=== PATIENT | female | born 1960 | race Caucasian/White ===

== ENCOUNTER 2017-08-31 10:22 | Emergency (ER) | payer MEDICAID ==
[~2017-08-31] VITALS: Ht 167.6 cm; Wt 124.7 kg
[2017-08-31 10:22] VITALS: BP_SYST 195
[2017-08-31 11:19] LABS: BASOPHILS # (AUTO) 0.1 K/uL (0.0-0.2); BASOPHILS % (AUTO) 1.7 % (0.0-2.0); EOSINOPHILS # (AUTO) 0.1 K/uL (0.0-0.4); HEMATOCRIT 36.4 % (36-48); HEMOGLOBIN 12.1 g/dL (12.0-16.0); LYMPHOCYTES # (AUTO) 2.1 K/uL (1.0-5.5); LYMPHOCYTES % (AUTO) 29.1 % (20.5-51.5); MEAN CORPUSCULAR HEMOGLOBIN 28 pg (27-31); MEAN CORPUSCULAR HGB CONC 33 % (32-36); MEAN CORPUSCULAR VOLUME 83 fL (79.0-98.0); MONOCYTES # (AUTO) 0.4 K/uL (0.0-1.0); MONOCYTES % (AUTO) 5.7 % (1.7-9.3); NEUTROPHILS # (AUTO) 4.6 K/uL (1.8-7.7); NEUTROPHILS % (AUTO) 61.5 % (40.0-70.0); PLATELET COUNT (AUTO) 303 K/uL (130-430); RED BLOOD CELL COUNT(AUTO) 4.41 MIL/uL (4.2-6.2); RED CELL DISTRIBUTION WIDTH 13.9 % (9.0-15.0); WHITE BLOOD COUNT (AUTO) 7.3 K/uL (4.8-10.8)
[2017-08-31 11:27] LABS: CALCIUM 9.2 mg/dL (8.4-11.0); CREATININE 1.44 mg/dL (0.55-1.30); POTASSIUM 4.4 mmol/L (3.5-5.1)
[2017-08-31 11:32] LABS: ALBUMIN 2.4 g/dL (3.4-4.8); TOTAL BILIRUBIN 0.3 mg/dL (0.0-1.0)
[2017-08-31 11:58] LABS: PROTHROMBIN TIME 9.9 SECS (9.5-12.5)
[2017-08-31 12:47] VITALS: BP_SYST 154
== END 2017-08-31 12:47 | disposition home or self-care (01) ==
LOC: SED 10:22
DX: R51 Headache (principal); R60.9 Edema, unspecified; R00.2 Palpitations; R53.1 Weakness; R20.2 Paresthesia of skin; E11.40 Type 2 diabetes mellitus with diabetic neuropathy, unspecified; I10 Essential (primary) hypertension; Z85.42 Personal history of malignant neoplasm of other parts of uterus; Z90.49 Acquired absence of other specified parts of digestive tract; Z90.710 Acquired absence of both cervix and uterus
CPT/HCPCS: 36415; 70450-TC; 71045; 80053; 82550-TC; 83880; 84484; 85025; 85610-TC; 85730-TC; 93005; 93970; 99285

== ENCOUNTER 2018-03-16 12:15 | Emergency (ER) | payer MEDICAID ==
[~2018-03-16] VITALS: Ht 167.6 cm; Wt 125.6 kg
[2018-03-16 12:18] VITALS: BP_SYST 127
--- NOTE | 2018-03-16 12:23 | NUR ---
Patient triaged and placed in waiting room. VSS and patient appears in no acute distress at this time. Accompanied by self, awaiting available bed, and MD notified of need for MSE.
--- NOTE | 2018-03-16 12:31 | NUR ---
Pt placed in bed 4
--- NOTE | 2018-03-16 12:35 | NUR ---
Pt brought by self,A&Ox4, pt presents to ER with large bump on right inner thigh near groin ,brown discharge noted,pt afebrile, VS WNL.
--- NOTE | 2018-03-16 12:44 | NUR ---
ER at bedside examining patient with Carrie SIMONS
[2018-03-16 13:06] VITALS: BP_SYST 127
--- NOTE | 2018-03-16 13:45 | NUR ---
Patient given written and verbal discharge instructions and verbalizes understanding. ER MD discussed with patient the results and treatment provided. Patient in stable condition. ID arm band removed. Rx of Tylenol and Keflex given. Patient educated on pain management and to follow up with PMD. Pain Scale 2/10 tolerable for patient . Opportunity for questions provided and answered. Medication side effect fact sheet provided.
== END 2018-03-16 13:45 | disposition home or self-care (01) ==
LOC: SED 12:15
DX: L03.311 Cellulitis of abdominal wall (principal); E11.40 Type 2 diabetes mellitus with diabetic neuropathy, unspecified; I10 Essential (primary) hypertension; Z85.42 Personal history of malignant neoplasm of other parts of uterus; Z90.49 Acquired absence of other specified parts of digestive tract; Z90.710 Acquired absence of both cervix and uterus
CPT/HCPCS: 99283

== ENCOUNTER 2018-09-21 11:07 | Inpatient (IN) | payer MEDICAID ==
[~2018-09-21] VITALS: Ht 167.6 cm; Wt 126.6 kg
[2018-09-21 11:27] VITALS: BP_SYST 138
[2018-09-21 12:10] LABS: BASOPHILS # (AUTO) 0.1 K/uL (0.0-0.2); BASOPHILS % (AUTO) 0.7 % (0.0-2.0); EOSINOPHILS # (AUTO) 0.1 K/uL (0.0-0.4); EOSINOPHILS % (AUTO) 0.8 % (0.0-4.0); HEMATOCRIT 29.8 % (36-48); HEMOGLOBIN 9.4 g/dL (12.0-16.0); LYMPHOCYTES # (AUTO) 2.7 K/uL (1.0-5.5); LYMPHOCYTES % (AUTO) 23.5 % (20.5-51.5); MEAN CORPUSCULAR HEMOGLOBIN 26 pg (27-31); MEAN CORPUSCULAR HGB CONC 32 % (32-36); MEAN CORPUSCULAR VOLUME 83 fL (79.0-98.0); NEUTROPHILS # (AUTO) 7.7 K/uL (1.8-7.7); PLATELET COUNT (AUTO) 255 K/uL (130-430); RED BLOOD CELL COUNT(AUTO) 3.59 MIL/uL (4.2-6.2); RED CELL DISTRIBUTION WIDTH 15.1 % (9.0-15.0); WHITE BLOOD COUNT (AUTO) 11.6 K/uL (4.8-10.8)
[2018-09-21 12:38] LABS: CALCIUM 8.9 mg/dL (8.4-11.0); CREATININE 2.83 mg/dL (0.55-1.30); POTASSIUM 4.4 mmol/L (3.5-5.1)
[2018-09-21 12:43] LABS: ALBUMIN 2.4 g/dL (3.4-4.8); TOTAL BILIRUBIN 0.2 mg/dL (0.0-1.0)
[2018-09-21] MEDS ORDERED: IPRATROPIUM/ALBUTEROL SULFATE 3 ML AMPUL.NEB (DUONEB) INH ONE (12:45)
[2018-09-21] MEDS ORDERED: ENALAPRILAT DIHYDRATE 1.25 MG/ML VIAL IVP ONE (13:00)
[2018-09-21] MEDS ORDERED: ASPIRIN 81 MG TAB.CHEW PO ONE (13:00)
[2018-09-21] MEDS ORDERED: ASPI-1155 PO (13:45)
[2018-09-21] MEDS ORDERED: NOR10 PO (13:45)
[2018-09-21] MEDS ORDERED: GABA-531 PO (14:12)
[2018-09-21] MEDS ORDERED: INSU100V SQ (14:12)
[2018-09-21] MEDS ORDERED: FURO-150 PO (14:12)
[2018-09-21] MEDS ORDERED: INSU100I26 SQ (14:12)
[2018-09-21] MEDS ORDERED: METO25TA3 PO (14:12)
[2018-09-21] MEDS ORDERED: ONDANSETRON HCL 4 MG/2 ML VIAL IVP PRN (14:30)
[2018-09-21] MEDS ORDERED: HYDROcodone/ACETAMIN 5-325 MG TAB (NORCO/ VICODIN) PO PRN (14:30)
[2018-09-21] MEDS ORDERED: ACETAMINOPHEN 325 MG TABLET PO PRN (14:30)
[2018-09-21] MEDS ORDERED: D5W 1,000 ML IV PRN (15:05)
[2018-09-21] MEDS ORDERED: GLUCOSE 15 GM GEL (in 37.5 GM TUBE) PO PRN (15:15)
[2018-09-21] MEDS ORDERED: GABAPENTIN 300 MG CAPSULE PO ONE (15:15)
[2018-09-21] MEDS ORDERED: DEXTROSE 50% JECT 50 ML DISP.SYRIN IVP PRN (15:15)
[2018-09-21 16:52] LABS: BILIRUBIN,URINE NEGATIVE (NEGATIVE); BLOOD, URINE 2+ (NEGATIVE); CLARITY/URINE CLOUDY (CLEAR); COLOR,URINE YELLOW (YELLOW); GLUCOSE,URINE TRACE (NEGATIVE); KETONES,URINE NEGATIVE (NEGATIVE); LEUKOCYTE ESTERASE ,URINE TRACE (NEGATIVE); NITRITE, URINE NEGATIVE (NEGATIVE); PH,URINE 5.5 (5.0-8.0); PROTEIN URINE 3+ (NEGATIVE); UROBILINOGEN,URINE 0.2 (0.2-1.0)
[2018-09-21 16:56] VITALS: BP_SYST 117
[2018-09-21] MEDS: INSULIN REGULAR, HUMAN 100 UNITS/ML, 10 ML VIAL (humuLIN R) SUBCUT PRN ×2 (17:16→20:28)
[2018-09-21 17:47] LABS: BACTERIA,URINE MANY /HPF (None Seen); COARSE GRANULAR CASTS,URINE 0-10 /LPF (None Seen); MUCUS,URINE None Seen /LPF (None Seen); WBC,URINE 50-80 /HPF (0-3)
[2018-09-21 20:00] VITALS: BP_SYST 144
[2018-09-21] MEDS: FUROSEMIDE 20 MG TABLET PO SCH (20:26)
[2018-09-21] MEDS: GABAPENTIN 300 MG CAPSULE PO SCH (20:26)
[2018-09-21] MEDS ORDERED: NORMAL SALINE 5 ML DISP.SYRIN IVF SCH (22:00)
[2018-09-21] MEDS: NORMAL SALINE 5 ML DISP.SYRIN IVF SCH (22:00)
[2018-09-22] VITALS (7 sets, daily range): BP systolic 122–154
[2018-09-22] MEDS ORDERED: IPRATROPIUM BROM 0.5 MG/2.5 ML VIAL.NEB (ATROVENT) INH PRN (00:15)
[2018-09-22] MEDS ORDERED: ALBUTEROL SULFATE 0.083% 2.5 MG/3 ML VIAL.NEB INH PRN (00:15)
[2018-09-22] MEDS: INSULIN REGULAR, HUMAN 100 UNITS/ML, 10 ML VIAL (humuLIN R) SUBCUT PRN ×4 (05:33→20:58)
[2018-09-22] MEDS: NORMAL SALINE 5 ML DISP.SYRIN IVF SCH ×3 (05:34→22:00)
[2018-09-22 07:47] LABS: BASOPHILS # (AUTO) 0.1 K/uL (0.0-0.2); BASOPHILS % (AUTO) 0.4 % (0.0-2.0); EOSINOPHILS # (AUTO) 0.1 K/uL (0.0-0.4); EOSINOPHILS % (AUTO) 0.8 % (0.0-4.0); HEMATOCRIT 29.1 % (36-48); HEMOGLOBIN 9.2 g/dL (12.0-16.0); LYMPHOCYTES # (AUTO) 2.3 K/uL (1.0-5.5); LYMPHOCYTES % (AUTO) 18.9 % (20.5-51.5); MEAN CORPUSCULAR HEMOGLOBIN 26 pg (27-31); MEAN CORPUSCULAR HGB CONC 32 % (32-36); MEAN CORPUSCULAR VOLUME 83 fL (79.0-98.0); MONOCYTES # (AUTO) 0.9 K/uL (0.0-1.0); MONOCYTES % (AUTO) 7.8 % (1.7-9.3); NEUTROPHILS # (AUTO) 8.8 K/uL (1.8-7.7); NEUTROPHILS % (AUTO) 72.1 % (40.0-70.0); PLATELET COUNT (AUTO) 275 K/uL (130-430); RED CELL DISTRIBUTION WIDTH 15.2 % (9.0-15.0); WHITE BLOOD COUNT (AUTO) 12.2 K/uL (4.8-10.8)
[2018-09-22 08:15] LABS: CALCIUM 8.7 mg/dL (8.4-11.0); CREATININE 2.84 mg/dL (0.55-1.30); PHOSPHORUS 4.2 mg/dL (2.7-4.5); POTASSIUM 4.4 mmol/L (3.5-5.1); THYROID STIMULATING HORMONE 0.99 uIu/mL (0.36-3.74)
[2018-09-22] MEDS: METOPROLOL SUCCINATE 25 MG TAB.SR.24H (TOPROL XL) PO SCH (08:30)
[2018-09-22] MEDS: ASPIRIN 81 MG TAB.CHEW PO SCH (08:30)
[2018-09-22] MEDS: amLODIPine BESYLATE 10 MG TABLET PO SCH (08:30)
[2018-09-22] MEDS: GABAPENTIN 300 MG CAPSULE PO SCH ×3 (08:31→20:50)
[2018-09-22] MEDS: FUROSEMIDE 20 MG TABLET PO SCH ×2 (08:31→20:53)
[2018-09-22] MEDS: guaiFENesin/DEXTROMETHORPHAN 10 ML UDC PO PRN ×2 (11:37→20:50)
[2018-09-22] MEDS: ALBUTEROL SULFATE 0.083% 2.5 MG/3 ML VIAL.NEB INH PRN ×2 (11:45→18:44)
[2018-09-22] MEDS: IPRATROPIUM BROM 0.5 MG/2.5 ML VIAL.NEB (ATROVENT) INH PRN ×2 (11:46→18:45)
[2018-09-22] MEDS: cefTRIAXone 1 GM in D5W 50 ML IV SCH (11:56)
[2018-09-22] MEDS: LORazepam 2 MG/ML VIAL IVP PRN (23:49)
[2018-09-22] MEDS: HYDROcodone/ACETAMIN 10-325 MG TAB PO PRN (23:56)
[2018-09-23] MEDS: INSULIN REGULAR, HUMAN 100 UNITS/ML, 10 ML VIAL (humuLIN R) SUBCUT PRN ×4 (06:16→21:15)
[2018-09-23] MEDS: NORMAL SALINE 5 ML DISP.SYRIN IVF SCH ×3 (06:17→21:08)
[2018-09-23 06:47] LABS: BASOPHILS # (AUTO) 0.1 K/uL (0.0-0.2); BASOPHILS % (AUTO) 0.6 % (0.0-2.0); EOSINOPHILS # (AUTO) 0.3 K/uL (0.0-0.4); EOSINOPHILS % (AUTO) 2.3 % (0.0-4.0); HEMATOCRIT 30.8 % (36-48); HEMOGLOBIN 9.6 g/dL (12.0-16.0); LYMPHOCYTES # (AUTO) 4.1 K/uL (1.0-5.5); LYMPHOCYTES % (AUTO) 29.9 % (20.5-51.5); MEAN CORPUSCULAR HEMOGLOBIN 26 pg (27-31); MEAN CORPUSCULAR HGB CONC 31 % (32-36); MEAN CORPUSCULAR VOLUME 84 fL (79.0-98.0); MONOCYTES % (AUTO) 7.4 % (1.7-9.3); NEUTROPHILS # (AUTO) 8.2 K/uL (1.8-7.7); NEUTROPHILS % (AUTO) 59.8 % (40.0-70.0); PLATELET COUNT (AUTO) 322 K/uL (130-430); RED BLOOD CELL COUNT(AUTO) 3.66 MIL/uL (4.2-6.2); RED CELL DISTRIBUTION WIDTH 15.2 % (9.0-15.0); WHITE BLOOD COUNT (AUTO) 13.8 K/uL (4.8-10.8)
[2018-09-23 07:05] LABS: ALBUMIN 2.4 g/dL (3.4-4.8); C-REACTIVE PROTEIN QUANT 11.5 mg/dL (0-0.5); CREATININE 2.9 mg/dL (0.55-1.30); PHOSPHORUS 5.2 mg/dL (2.7-4.5); POTASSIUM 4.7 mmol/L (3.5-5.1); TOTAL BILIRUBIN 0.2 mg/dL (0.0-1.0)
[2018-09-23 07:49] LABS: ERYTHROCYTE SEDIMENTATION RATE 74 MM/HR (0-20)
[2018-09-23 08:30] VITALS: BP_SYST 162
[2018-09-23] MEDS: METOPROLOL SUCCINATE 25 MG TAB.SR.24H (TOPROL XL) PO SCH (08:51)
[2018-09-23] MEDS: FUROSEMIDE 20 MG TABLET PO SCH ×2 (08:51→21:06)
[2018-09-23] MEDS: guaiFENesin/DEXTROMETHORPHAN 10 ML UDC PO PRN ×3 (08:51→21:13)
[2018-09-23] MEDS: GABAPENTIN 300 MG CAPSULE PO SCH ×3 (08:52→21:02)
[2018-09-23] MEDS: ASPIRIN 81 MG TAB.CHEW PO SCH (08:52)
[2018-09-23] MEDS: amLODIPine BESYLATE 10 MG TABLET PO SCH (08:52)
[2018-09-23 11:24] VITALS: BP_SYST 128
[2018-09-23] MEDS: cefTRIAXone 1 GM in D5W 50 ML IV SCH (11:54)
[2018-09-23] MEDS ORDERED: VANCOMYCIN HCL 1 GM/NS PREMIX 250 ML IV ONE (13:00)
[2018-09-23 15:48] VITALS: BP_SYST 131
[2018-09-23] MEDS ORDERED: SODIUM CL 3% FOR INHALATION 15 ML VIAL.NEB INH ONE (16:45)
[2018-09-23] MEDS: AZITHROMYCIN 500 MG in NS 250 ML IV SCH (17:06)
[2018-09-23 20:00] VITALS: BP_SYST 123
[2018-09-23] MEDS: LORazepam 2 MG/ML VIAL IVP PRN (21:16)
[2018-09-23] MEDS: MUPIROCIN NASAL 2% OINT. NS SCH (21:16)
[2018-09-23] MEDS: HYDROcodone/ACETAMIN 10-325 MG TAB PO PRN (21:17)
[2018-09-24 03:11] VITALS: BP_SYST 116
[2018-09-24] MEDS: guaiFENesin/DEXTROMETHORPHAN 10 ML UDC PO PRN ×3 (04:51→23:44)
[2018-09-24] MEDS: HYDROcodone/ACETAMIN 10-325 MG TAB PO PRN ×2 (04:59→19:56)
[2018-09-24] MEDS: NORMAL SALINE 5 ML DISP.SYRIN IVF SCH ×3 (05:02→21:28)
[2018-09-24 06:38] LABS: BASOPHILS # (AUTO) 0.1 K/uL (0.0-0.2); BASOPHILS % (AUTO) 0.8 % (0.0-2.0); EOSINOPHILS # (AUTO) 0.3 K/uL (0.0-0.4); EOSINOPHILS % (AUTO) 2.6 % (0.0-4.0); HEMATOCRIT 30.6 % (36-48); HEMOGLOBIN 9.3 g/dL (12.0-16.0); LYMPHOCYTES # (AUTO) 2.8 K/uL (1.0-5.5); LYMPHOCYTES % (AUTO) 24.7 % (20.5-51.5); MEAN CORPUSCULAR HEMOGLOBIN 26 pg (27-31); MEAN CORPUSCULAR HGB CONC 31 % (32-36); MEAN CORPUSCULAR VOLUME 84 fL (79.0-98.0); MONOCYTES # (AUTO) 1.2 K/uL (0.0-1.0); MONOCYTES % (AUTO) 10.2 % (1.7-9.3); NEUTROPHILS % (AUTO) 61.7 % (40.0-70.0); PLATELET COUNT (AUTO) 327 K/uL (130-430); RED BLOOD CELL COUNT(AUTO) 3.64 MIL/uL (4.2-6.2); RED CELL DISTRIBUTION WIDTH 15.2 % (9.0-15.0); WHITE BLOOD COUNT (AUTO) 11.4 K/uL (4.8-10.8)
[2018-09-24 07:10] LABS: C-REACTIVE PROTEIN QUANT 6.8 mg/dL (0-0.5); CALCIUM 8.6 mg/dL (8.4-11.0); CREATININE 2.82 mg/dL (0.55-1.30); PHOSPHORUS 4.9 mg/dL (2.7-4.5); POTASSIUM 4.6 mmol/L (3.5-5.1)
[2018-09-24 08:00] VITALS: BP_SYST 142
[2018-09-24 08:32] LABS: ERYTHROCYTE SEDIMENTATION RATE 54 MM/HR (0-20)
[2018-09-24] MEDS: MUPIROCIN NASAL 2% OINT. NS SCH ×2 (09:31→21:20)
[2018-09-24] MEDS: GABAPENTIN 300 MG CAPSULE PO SCH ×3 (09:31→21:19)
[2018-09-24] MEDS: FUROSEMIDE 20 MG TABLET PO SCH ×2 (09:31→21:19)
[2018-09-24] MEDS: METOPROLOL SUCCINATE 25 MG TAB.SR.24H (TOPROL XL) PO SCH (09:32)
[2018-09-24] MEDS: ASPIRIN 81 MG TAB.CHEW PO SCH (09:32)
[2018-09-24] MEDS: amLODIPine BESYLATE 10 MG TABLET PO SCH (09:32)
[2018-09-24] MEDS: cefTRIAXone 1 GM in D5W 50 ML IV SCH (11:38)
[2018-09-24] MEDS: INSULIN REGULAR, HUMAN 100 UNITS/ML, 10 ML VIAL (humuLIN R) SUBCUT PRN ×3 (11:52→21:24)
[2018-09-24 12:12] VITALS: BP_SYST 116
[2018-09-24] MEDS: AZITHROMYCIN 500 MG in NS 250 ML IV SCH (13:05)
[2018-09-24 16:52] VITALS: BP_SYST 129
[2018-09-24 20:20] VITALS: BP_SYST 135
[2018-09-24] MEDS: HEPARIN SODIUM,PORCINE 5000 UNITS/ML VIAL SUBCUT SCH (21:24)
[2018-09-25 00:32] VITALS: BP_SYST 132
[2018-09-25] MEDS: HYDROcodone/ACETAMIN 10-325 MG TAB PO PRN ×2 (04:26→22:09)
[2018-09-25] MEDS: NORMAL SALINE 5 ML DISP.SYRIN IVF SCH ×3 (05:47→22:12)
[2018-09-25 07:37] LABS: BASOPHILS # (AUTO) 0.2 K/uL (0.0-0.2); BASOPHILS % (AUTO) 1.5 % (0.0-2.0); EOSINOPHILS # (AUTO) 0.5 K/uL (0.0-0.4); EOSINOPHILS % (AUTO) 4.3 % (0.0-4.0); HEMATOCRIT 27.2 % (36-48); HEMOGLOBIN 8.7 g/dL (12.0-16.0); LYMPHOCYTES # (AUTO) 3.3 K/uL (1.0-5.5); LYMPHOCYTES % (AUTO) 29.5 % (20.5-51.5); MEAN CORPUSCULAR HEMOGLOBIN 27 pg (27-31); MEAN CORPUSCULAR HGB CONC 32 % (32-36); MEAN CORPUSCULAR VOLUME 83 fL (79.0-98.0); MONOCYTES # (AUTO) 0.9 K/uL (0.0-1.0); MONOCYTES % (AUTO) 8.1 % (1.7-9.3); NEUTROPHILS # (AUTO) 6.3 K/uL (1.8-7.7); NEUTROPHILS % (AUTO) 56.6 % (40.0-70.0); PLATELET COUNT (AUTO) 317 K/uL (130-430); RED BLOOD CELL COUNT(AUTO) 3.26 MIL/uL (4.2-6.2); RED CELL DISTRIBUTION WIDTH 15.1 % (9.0-15.0); WHITE BLOOD COUNT (AUTO) 11.1 K/uL (4.8-10.8)
[2018-09-25 07:53] LABS: CALCIUM 8.9 mg/dL (8.4-11.0); CREATININE 2.54 mg/dL (0.55-1.30); PHOSPHORUS 4.4 mg/dL (2.7-4.5); POTASSIUM 4.7 mmol/L (3.5-5.1)
[2018-09-25 08:07] LABS: C-REACTIVE PROTEIN QUANT 4.7 mg/dL (0-0.5)
[2018-09-25 08:27] LABS: ERYTHROCYTE SEDIMENTATION RATE 49 MM/HR (0-20)
[2018-09-25 09:00] VITALS: BP_SYST 146
[2018-09-25] MEDS: amLODIPine BESYLATE 10 MG TABLET PO SCH (09:42)
[2018-09-25] MEDS: METOPROLOL SUCCINATE 25 MG TAB.SR.24H (TOPROL XL) PO SCH (09:43)
[2018-09-25] MEDS: GABAPENTIN 300 MG CAPSULE PO SCH ×3 (09:43→22:08)
[2018-09-25] MEDS: FUROSEMIDE 20 MG TABLET PO SCH ×2 (09:43→22:07)
[2018-09-25] MEDS: ASPIRIN 81 MG TAB.CHEW PO SCH (09:43)
[2018-09-25] MEDS: HEPARIN SODIUM,PORCINE 5000 UNITS/ML VIAL SUBCUT SCH ×2 (09:44→22:11)
[2018-09-25] MEDS: MUPIROCIN NASAL 2% OINT. NS SCH ×2 (09:45→22:08)
[2018-09-25] MEDS: INSULIN REGULAR, HUMAN 100 UNITS/ML, 10 ML VIAL (humuLIN R) SUBCUT PRN ×3 (11:47→22:11)
[2018-09-25] MEDS: AZITHROMYCIN 500 MG in NS 250 ML IV SCH (11:48)
[2018-09-25] MEDS: cefTRIAXone 1 GM in D5W 50 ML IV SCH (11:48)
[2018-09-25 12:09] VITALS: BP_SYST 138
[2018-09-25 17:53] VITALS: BP_SYST 125
[2018-09-25 18:59] LABS: CREATININE 2.54 mg/dL (0.55-1.30)
[2018-09-25 20:32] VITALS: BP_SYST 137
[2018-09-25] MEDS: guaiFENesin/DEXTROMETHORPHAN 10 ML UDC PO PRN (22:08)
[2018-09-26 00:23] VITALS: BP_SYST 141
[2018-09-26] MEDS: guaiFENesin/DEXTROMETHORPHAN 10 ML UDC PO PRN (03:51)
[2018-09-26] MEDS: HYDROcodone/ACETAMIN 10-325 MG TAB PO PRN (03:52)
[2018-09-26 06:08] LABS: ALBUMIN 2.1 g/dL (3.4-4.8); C-REACTIVE PROTEIN QUANT 4.2 mg/dL (0-0.5); CALCIUM 8.8 mg/dL (8.4-11.0); CREATININE 2.54 mg/dL (0.55-1.30); PHOSPHORUS 4.6 mg/dL (2.7-4.5); POTASSIUM 4.6 mmol/L (3.5-5.1); TOTAL BILIRUBIN 0.1 mg/dL (0.0-1.0)
[2018-09-26 06:19] LABS: BASOPHILS # (AUTO) 0.1 K/uL (0.0-0.2); BASOPHILS % (AUTO) 0.6 % (0.0-2.0); EOSINOPHILS # (AUTO) 0.5 K/uL (0.0-0.4); EOSINOPHILS % (AUTO) 5.2 % (0.0-4.0); HEMATOCRIT 26.7 % (36-48); HEMOGLOBIN 8.6 g/dL (12.0-16.0); LYMPHOCYTES % (AUTO) 30.4 % (20.5-51.5); MEAN CORPUSCULAR HEMOGLOBIN 27 pg (27-31); MEAN CORPUSCULAR HGB CONC 32 % (32-36); MEAN CORPUSCULAR VOLUME 83 fL (79.0-98.0); MONOCYTES # (AUTO) 0.7 K/uL (0.0-1.0); MONOCYTES % (AUTO) 7.4 % (1.7-9.3); NEUTROPHILS # (AUTO) 5.5 K/uL (1.8-7.7); NEUTROPHILS % (AUTO) 56.4 % (40.0-70.0); PLATELET COUNT (AUTO) 302 K/uL (130-430); RED BLOOD CELL COUNT(AUTO) 3.21 MIL/uL (4.2-6.2); WHITE BLOOD COUNT (AUTO) 9.8 K/uL (4.8-10.8)
[2018-09-26] MEDS: NORMAL SALINE 5 ML DISP.SYRIN IVF SCH ×2 (06:57→14:01)
[2018-09-26] MEDS: INSULIN REGULAR, HUMAN 100 UNITS/ML, 10 ML VIAL (humuLIN R) SUBCUT PRN ×2 (06:59→11:20)
[2018-09-26 08:01] VITALS: BP_SYST 136
[2018-09-26] MEDS: HEPARIN SODIUM,PORCINE 5000 UNITS/ML VIAL SUBCUT SCH (08:10)
[2018-09-26] MEDS: amLODIPine BESYLATE 10 MG TABLET PO SCH (08:10)
[2018-09-26] MEDS: GABAPENTIN 300 MG CAPSULE PO SCH ×2 (08:11→15:03)
[2018-09-26] MEDS: FUROSEMIDE 20 MG TABLET PO SCH (08:11)
[2018-09-26] MEDS: ASPIRIN 81 MG TAB.CHEW PO SCH (08:11)
[2018-09-26] MEDS: MUPIROCIN NASAL 2% OINT. NS SCH (08:13)
[2018-09-26] MEDS: METOPROLOL SUCCINATE 25 MG TAB.SR.24H (TOPROL XL) PO SCH (08:13)
[2018-09-26 08:40] LABS: ERYTHROCYTE SEDIMENTATION RATE 38 MM/HR (0-20)
[2018-09-26 10:18] LABS: TPROTEIN U,24HR 2622.3 mg/24HR (0-130)
[2018-09-26 10:22] LABS: CREATININE CLEARANCE,URINE 15.4 ml/min (80-120); CREATININE,URINE 88.1 MG/DL (30-125)
[2018-09-26] MEDS: cefTRIAXone 1 GM in D5W 50 ML IV SCH (11:17)
[2018-09-26 12:16] VITALS: BP_SYST 149
[2018-09-26] MEDS: AZITHROMYCIN 500 MG in NS 250 ML IV SCH (12:41)
[2018-09-26] MEDS ORDERED: LEVO750T45 PO (13:29)
[2018-09-26 15:22] VITALS: BP_SYST 149
[2018-09-26 16:43] VITALS: BP_SYST 140
== END 2018-09-26 16:30 | disposition home or self-care (01) | DRG 720 ==
LOC: SED 11:07 → STU 13:33 → SMU 09-24 11:09
PROVIDERS: ADMIT Preventive Medicine Preventive Medicine/Occupational Environmental Medicine; ATTEND Preventive Medicine Preventive Medicine/Occupational Environmental Medicine
DX: A41.50 Gram-negative sepsis, unspecified (principal); N17.0 Acute kidney failure with tubular necrosis; E11.22 Type 2 diabetes mellitus with diabetic chronic kidney disease; I24.9 Acute ischemic heart disease, unspecified; E66.01 Morbid (severe) obesity due to excess calories; E11.40 Type 2 diabetes mellitus with diabetic neuropathy, unspecified; E88.09 Other disorders of plasma-protein metabolism, not elsewhere classified; N39.0 Urinary tract infection, site not specified; B96.1 Klebsiella pneumoniae [K. pneumoniae] as the cause of diseases classified elsewhere; D64.9 Anemia, unspecified; E11.65 Type 2 diabetes mellitus with hyperglycemia; I13.0 Hypertensive heart and chronic kidney disease with heart failure and stage 1 through stage 4 chronic kidney disease, or unspecified chronic kidney disease; I50.9 Heart failure, unspecified; D63.1 Anemia in chronic kidney disease; J20.9 Acute bronchitis, unspecified; N18.3 Chronic kidney disease, stage 3 (moderate); Z22.322 Carrier or suspected carrier of Methicillin resistant Staphylococcus aureus; Z85.42 Personal history of malignant neoplasm of other parts of uterus; Z68.42 Body mass index [BMI] 45.0-49.9, adult
CPT/HCPCS: 36415; 71045; 76770; 80048; 80053; 81000-TC; 82575-TC; 82962; 83605; 83735-TC; 83880; 84100-TC; 84156; 84443-TC; 84484; 85025; 85651-TC; 86140; 87040-TC; 87070-TC; 87081; 87086; 87186-TC; 87205-TC; 93005; 93306; 94640; 99291; G0378; J0456; J0696; J1644; J1815; J2060; J3370; J7050; J7060; J7131; J7613; J7620

== ENCOUNTER 2019-03-14 10:17 | Emergency (ER) | payer MEDICAID ==
[~2019-03-14] VITALS: Ht 167.6 cm; Wt 122.5 kg
[~2019-03-14 10:17] MED LIST: ASPI-1155 PO; FURO-150 PO; GABA-531 PO; INSU100I26 SQ; INSU100V SQ; LEVO750T45 PO; METO25TA3 PO; NOR10 PO
--- NOTE | 2019-03-14 10:22 | NUR ---
Patient to ER bed 08 to gown for evaluation. Side rails up.
[2019-03-14 10:23] VITALS: BP_SYST 144
--- NOTE | 2019-03-14 10:25 | NUR ---
Patient arrived in the ED c/o pain on right knee and right ankle post mechanical fall that happened yesterday - Patient is taking Tylenol; no relief per patient. Denied any head injury or loss of consciousness. Denied any fevers, nausea, vomiting, or chills. Patient is alert and oriented x4, respirations even and unlabored, speaking in full sentences, ambulating using a wheelchair. VSS, pain level 7/10. Denied any chest pain or SOB. Informed of wait time. Instructed to notify ED staff for any changes in condition or worsening of symptoms. Patient verbalized understanding.
--- NOTE | 2019-03-14 10:33 | NUR ---
ER Dr. Golden at bedside examining patient.
[2019-03-14] MEDS ORDERED: KETOROLAC TROMETHAMINE 60 MG/2 ML VIAL IM ONE (10:45)
--- NOTE | 2019-03-14 10:45 | NUR ---
Administered Toradol 60mg IM as ordered by Dr. Golden. Patient tolerated the medication well.
--- NOTE | 2019-03-14 10:47 | NUR ---
X-ray done at bedside as ordered by Dr. Golden. Patient tolerated the procedure well.
[2019-03-14 12:13] VITALS: BP_SYST 142
--- NOTE | 2019-03-14 12:14 | NUR ---
Patient given written and verbal discharge instructions and verbalizes understanding. ER MD discussed with patient the results and treatment provided. Patient in stable condition. ID arm band removed. Rx of Andrea Bruce given. Patient educated on pain management and to follow up with PMD. Pain Scale 3/10 tolerable for pt. Opportunity for questions provided and answered. Medication side effect fact sheet provided.
== END 2019-03-14 12:13 | disposition home or self-care (01) ==
LOC: SED 10:17
DX: M25.561 Pain in right knee (principal); J44.9 Chronic obstructive pulmonary disease, unspecified; E11.9 Type 2 diabetes mellitus without complications; I10 Essential (primary) hypertension; Z90.49 Acquired absence of other specified parts of digestive tract; Z90.710 Acquired absence of both cervix and uterus; Z79.899 Other long term (current) drug therapy
CPT/HCPCS: 73560; 96372; 99283; J1885

== ENCOUNTER 2022-04-28 13:45 | Inpatient (IN) | payer MEDICAID ==
[~2022-04-28] VITALS: Ht 167.6 cm; Wt 154.7 kg
[~2022-04-28 13:45] MED LIST changes: -LEVO750T45 PO; +LEVO750T64 PO
[2022-04-28 14:14] VITALS: BP_SYST 148
[2022-04-28] MEDS ORDERED: ONDANSETRON HCL 4 MG/2 ML VIAL IVP ONE (15:00)
[2022-04-28] MEDS ORDERED: MORPHINE 2 MG/ML INJ. SYRINGE IVP ONE (15:00)
[2022-04-28] MEDS ORDERED: KETOROLAC TROMETHAMINE 30 MG VIAL IVP ONE (15:00)
[2022-04-28 15:02] LABS: BASOPHILS # (AUTO) 0.1 K/uL (0.0-0.2); BASOPHILS % (AUTO) 0.7 % (0.0-2.0); EOSINOPHILS # (AUTO) 0.1 K/uL (0.0-0.4); HEMATOCRIT 25.3 % (36-48); LYMPHOCYTES # (AUTO) 1.4 K/uL (1.0-5.5); LYMPHOCYTES % (AUTO) 16.3 % (20.5-51.5); MEAN CORPUSCULAR HEMOGLOBIN 28 pg (27-31); MEAN CORPUSCULAR HGB CONC 32 % (32-36); MEAN CORPUSCULAR VOLUME 89 fL (79.0-98.0); MONOCYTES # (AUTO) 0.8 K/uL (0.0-1.0); MONOCYTES % (AUTO) 9.5 % (1.7-9.3); NEUTROPHILS # (AUTO) 6.3 K/uL (1.8-7.7); NEUTROPHILS % (AUTO) 72.5 % (40.0-70.0); PLATELET COUNT (AUTO) 324 K/uL (130-430); RED BLOOD CELL COUNT(AUTO) 2.86 MIL/uL (4.2-6.2); RED CELL DISTRIBUTION WIDTH 16.8 % (9.0-15.0); WHITE BLOOD COUNT (AUTO) 8.7 K/uL (4.8-10.8)
[2022-04-28 15:14] LABS: ANION GAP 18 (5-15); CALCIUM 7.5 mg/dL (8.4-11.0); CHLORIDE 107 mmol/L (98-107); GLUCOSE 110 mg/dL (70-99); UREA NITROGEN, BLOOD 88 mg/dL (8-21)
[2022-04-28 15:21] LABS: ALBUMIN 2.6 g/dL (3.4-4.8); ASPARTATE AMINOTRANSFERASE 9 U/L (10-37); TOTAL BILIRUBIN 0.2 mg/dL (0.0-1.0)
[2022-04-28 15:34] LABS: GFR AFRICAN AMERICAN 6 mL/min (>90)
[2022-04-28 15:36] LABS: CREATININE 8.25 mg/dL (0.55-1.30)
[2022-04-28 16:06] LABS: ALANINE AMINOTRANSFERASE 12 U/L (12-78)
[2022-04-28] MEDS ORDERED: OSELTAMIVIR PHOSPHATE 75 MG CAPSULE PO ONE (17:30)
[2022-04-28 18:40] LABS: BILIRUBIN,URINE NEGATIVE (NEGATIVE); BLOOD, URINE 1+ (NEGATIVE); COLOR,URINE YELLOW (YELLOW); GLUCOSE,URINE NEGATIVE (NEGATIVE); KETONES,URINE NEGATIVE (NEGATIVE); LEUKOCYTE ESTERASE ,URINE 2+ (NEGATIVE); NITRITE, URINE NEGATIVE (NEGATIVE); PROTEIN URINE 2+ (NEGATIVE); UROBILINOGEN,URINE 0.2 (0.2-1.0)
[2022-04-28] MEDS ORDERED: NALOXONE HCL 0.4 MG/ML AMP (NARCAN) IVP PRN ×2 (19:00)
[2022-04-28] MEDS ORDERED: POTASSIUM CHLORIDE 20 MEQ TAB.PRT.SR PO PRN (19:00)
[2022-04-28] MEDS ORDERED: MUPIROCIN 2% TOPICAL OINTMENT 22 GM NS PRN (19:00)
[2022-04-28] MEDS ORDERED: MAGNESIUM SULFATE 50 ML IV PRN (19:00)
[2022-04-28] MEDS ORDERED: MORPHINE 2 MG/ML INJ. SYRINGE IVP PRN (19:00)
[2022-04-28] MEDS ORDERED: LORazepam 2 MG/ML VIAL IVP PRN (19:00)
[2022-04-28] MEDS ORDERED: ACETAMINOPHEN 325 MG TABLET PO PRN ×2 (19:00→19:15)
[2022-04-28] MEDS ORDERED: DOCUSATE SODIUM 100 MG CAPSULE PO PRN (19:00)
[2022-04-28 19:08] LABS: CLARITY/URINE CLOUDY (CLEAR)
[2022-04-28 19:13] LABS: BACTERIA,URINE MANY /HPF (None Seen); WBC,URINE 20-50 /HPF (0-3)
[2022-04-28] MEDS ORDERED: DEXTROSE 50% JECT 50 ML DISP.SYRIN IVP PRN (19:15)
[2022-04-28] MEDS: GABAPENTIN 300 MG CAPSULE PO SCH (21:06)
[2022-04-28] MEDS ORDERED: GABAPENTIN 300 MG CAPSULE ONE (21:06)
[2022-04-29 07:47] LABS: BASOPHILS # (AUTO) 0.1 K/uL (0.0-0.2); BASOPHILS % (AUTO) 0.7 % (0.0-2.0); EOSINOPHILS # (AUTO) 0.2 K/uL (0.0-0.4); EOSINOPHILS % (AUTO) 2.2 % (0.0-4.0); HEMATOCRIT 25.7 % (36-48); LYMPHOCYTES # (AUTO) 1.8 K/uL (1.0-5.5); LYMPHOCYTES % (AUTO) 20.3 % (20.5-51.5); MEAN CORPUSCULAR HEMOGLOBIN 28 pg (27-31); MEAN CORPUSCULAR HGB CONC 31 % (32-36); MEAN CORPUSCULAR VOLUME 90 fL (79.0-98.0); MONOCYTES # (AUTO) 0.8 K/uL (0.0-1.0); MONOCYTES % (AUTO) 9.1 % (1.7-9.3); NEUTROPHILS # (AUTO) 6.1 K/uL (1.8-7.7); NEUTROPHILS % (AUTO) 67.7 % (40.0-70.0); PLATELET COUNT (AUTO) 292 K/uL (130-430); RED BLOOD CELL COUNT(AUTO) 2.86 MIL/uL (4.2-6.2); RED CELL DISTRIBUTION WIDTH 17.1 % (9.0-15.0)
[2022-04-29 08:00] VITALS: BP_SYST 138
[2022-04-29 08:30] VITALS: BP_SYST 136
[2022-04-29] MEDS: GABAPENTIN 300 MG CAPSULE PO SCH ×3 (09:00→20:29)
[2022-04-29] MEDS: METOPROLOL SUCCINATE 25 MG TAB.SR.24H (TOPROL XL) PO SCH (09:00)
[2022-04-29 09:18] LABS: CALCIUM 7.4 mg/dL (8.4-11.0)
[2022-04-29 09:27] LABS: TOTAL IRON BIND. CAPACITY 148 ug/dL (250-450)
[2022-04-29 09:30] LABS: ALBUMIN 2.3 g/dL (3.4-4.8); THYROID STIMULATING HORMONE 0.81 uIu/mL (0.34-4.82); TOTAL BILIRUBIN 0.2 mg/dL (0.0-1.0)
[2022-04-29 09:39] LABS: CREATININE 8.75 mg/dL (0.55-1.30)
[2022-04-29] MEDS: MORPHINE 2 MG/ML INJ. SYRINGE IVP PRN ×2 (10:53→20:41)
[2022-04-29] MEDS: ASPIRIN 81 MG TAB.CHEW PO SCH (10:56)
[2022-04-29] MEDS: amLODIPine BESYLATE 10 MG TABLET PO SCH (10:57)
[2022-04-29] MEDS: cefTRIAXone 1 GM in D5W 50 ML IV SCH (11:53)
[2022-04-29 12:36] VITALS: BP_SYST 136
[2022-04-29 16:14] VITALS: BP_SYST 109
[2022-04-29] MEDS ORDERED: ALTEPLASE 2 MG VIAL MC ONE (16:45)
[2022-04-29] MEDS ORDERED: ALTEPLASE 100 MG VIAL IV ONE (16:45)
[2022-04-29 19:30] VITALS: BP_SYST 137
[2022-04-29] MEDS: ONDANSETRON HCL 4 MG/2 ML VIAL IVP PRN (20:40)
[2022-04-29] MEDS: INSULIN LISPRO SLIDING SCALE 100 UNITS/ML, 3 ML VIAL (humaLOG) SUBCUT PRN (20:54)
[2022-04-30] VITALS: BP_SYST 119
[2022-04-30 08:00] VITALS: BP_SYST 109
[2022-04-30] MEDS: ASPIRIN 81 MG TAB.CHEW PO SCH (09:44)
[2022-04-30] MEDS: GABAPENTIN 300 MG CAPSULE PO SCH ×3 (09:45→21:45)
[2022-04-30] MEDS: amLODIPine BESYLATE 10 MG TABLET PO SCH (09:45)
[2022-04-30] MEDS: METOPROLOL SUCCINATE 25 MG TAB.SR.24H (TOPROL XL) PO SCH (09:46)
[2022-04-30] MEDS: MORPHINE 2 MG/ML INJ. SYRINGE IVP PRN (10:02)
[2022-04-30 11:25] VITALS: BP_SYST 109
[2022-04-30] MEDS: cefTRIAXone 1 GM in D5W 50 ML IV SCH (12:51)
[2022-04-30] MEDS: OSELTAMIVIR PHOSPHATE 6 MG/1 ML, 60 ML SUSP PO SCH (12:51)
[2022-04-30 12:54] LABS: BASOPHILS % (AUTO) 0.5 % (0.0-2.0); EOSINOPHILS # (AUTO) 0.2 K/uL (0.0-0.4); EOSINOPHILS % (AUTO) 1.7 % (0.0-4.0); HEMATOCRIT 22.8 % (36-48); HEMOGLOBIN 7.6 g/dL (12.0-16.0); LYMPHOCYTES # (AUTO) 1.9 K/uL (1.0-5.5); LYMPHOCYTES % (AUTO) 21.3 % (20.5-51.5); MEAN CORPUSCULAR HEMOGLOBIN 28 pg (27-31); MEAN CORPUSCULAR HGB CONC 33 % (32-36); MEAN CORPUSCULAR VOLUME 86 fL (79.0-98.0); MONOCYTES # (AUTO) 0.9 K/uL (0.0-1.0); MONOCYTES % (AUTO) 10.2 % (1.7-9.3); NEUTROPHILS # (AUTO) 6.1 K/uL (1.8-7.7); NEUTROPHILS % (AUTO) 66.3 % (40.0-70.0); PLATELET COUNT (AUTO) 314 K/uL (130-430); RED BLOOD CELL COUNT(AUTO) 2.67 MIL/uL (4.2-6.2); RED CELL DISTRIBUTION WIDTH 16.2 % (9.0-15.0); WHITE BLOOD COUNT (AUTO) 9.2 K/uL (4.8-10.8)
[2022-04-30 13:13] LABS: CREATININE 7.11 mg/dL (0.55-1.30)
[2022-04-30 13:27] LABS: CALCIUM 6.6 mg/dL (8.4-11.0)
[2022-04-30 16:39] VITALS: BP_SYST 92
[2022-04-30] MEDS ORDERED: CALCIUM GLUCONATE 1 GM in NS 100 ML IV ONE (17:00)
[2022-04-30] MEDS: INSULIN LISPRO SLIDING SCALE 100 UNITS/ML, 3 ML VIAL (humaLOG) SUBCUT PRN (19:26)
[2022-04-30 19:30] VITALS: BP_SYST 95
[2022-04-30] MEDS: MEROPENEM 1 GM in NS 100 ML IV SCH (21:45)
[2022-05-01] VITALS: BP_SYST 105
[2022-05-01] MEDS: ONDANSETRON HCL 4 MG/2 ML VIAL IVP PRN (00:21)
[2022-05-01] MEDS: MORPHINE 2 MG/ML INJ. SYRINGE IVP PRN ×3 (00:22→23:01)
[2022-05-01 08:00] VITALS: BP_SYST 124
[2022-05-01] MEDS: ASPIRIN 81 MG TAB.CHEW PO SCH (08:25)
[2022-05-01] MEDS: GABAPENTIN 300 MG CAPSULE PO SCH ×3 (08:25→21:11)
[2022-05-01] MEDS: calcitrioL 0.25 MCG CAPSULE PO SCH (08:27)
[2022-05-01] MEDS: amLODIPine BESYLATE 10 MG TABLET PO SCH (08:28)
[2022-05-01] MEDS: METOPROLOL SUCCINATE 25 MG TAB.SR.24H (TOPROL XL) PO SCH (08:29)
[2022-05-01] MEDS: MEROPENEM 1 GM in NS 100 ML IV SCH ×2 (08:29→21:11)
[2022-05-01] MEDS: FLUoxetine HCL 10 MG CAPSULE (PROzac) PO SCH (11:23)
[2022-05-01] MEDS ORDERED: HEPARIN SODIUM,PORCINE 5,000 UNITS/ML VIAL MC PRN (11:30)
[2022-05-01 11:31] VITALS: BP_SYST 92
[2022-05-01 15:34] VITALS: BP_SYST 108
[2022-05-01 15:49] LABS: BASOPHILS % (AUTO) 0.4 % (0.0-2.0); EOSINOPHILS # (AUTO) 0.2 K/uL (0.0-0.4); EOSINOPHILS % (AUTO) 1.9 % (0.0-4.0); HEMATOCRIT 24.2 % (36-48); HEMOGLOBIN 7.7 g/dL (12.0-16.0); LYMPHOCYTES # (AUTO) 1.5 K/uL (1.0-5.5); LYMPHOCYTES % (AUTO) 15.7 % (20.5-51.5); MEAN CORPUSCULAR HEMOGLOBIN 28 pg (27-31); MEAN CORPUSCULAR HGB CONC 32 % (32-36); MEAN CORPUSCULAR VOLUME 87 fL (79.0-98.0); MONOCYTES # (AUTO) 0.7 K/uL (0.0-1.0); MONOCYTES % (AUTO) 7.3 % (1.7-9.3); NEUTROPHILS # (AUTO) 7.1 K/uL (1.8-7.7); NEUTROPHILS % (AUTO) 74.7 % (40.0-70.0); PLATELET COUNT (AUTO) 290 K/uL (130-430); RED BLOOD CELL COUNT(AUTO) 2.78 MIL/uL (4.2-6.2); RED CELL DISTRIBUTION WIDTH 16.5 % (9.0-15.0); WHITE BLOOD COUNT (AUTO) 9.5 K/uL (4.8-10.8)
[2022-05-01 16:07] LABS: ALBUMIN 2.3 g/dL (3.4-4.8); CREATININE 5.67 mg/dL (0.55-1.30); TOTAL BILIRUBIN 0.2 mg/dL (0.0-1.0)
[2022-05-01] MEDS ORDERED: EPOETIN ALFA 10,000 UNITS/ML VIAL SUBCUT SCH (17:00)
[2022-05-01] MEDS: INSULIN LISPRO SLIDING SCALE 100 UNITS/ML, 3 ML VIAL (humaLOG) SUBCUT PRN (18:40)
[2022-05-01 20:00] VITALS: BP_SYST 127
[2022-05-02 00:21] VITALS: BP_SYST 127
[2022-05-02 08:22] LABS: HEMATOCRIT 23.7 % (36-48); HEMOGLOBIN 7.6 g/dL (12.0-16.0); MEAN CORPUSCULAR HEMOGLOBIN 28 pg (27-31); MEAN CORPUSCULAR HGB CONC 32 % (32-36); MEAN CORPUSCULAR VOLUME 86 fL (79.0-98.0); PLATELET COUNT (AUTO) 338 K/uL (130-430); RED BLOOD CELL COUNT(AUTO) 2.74 MIL/uL (4.2-6.2); RED CELL DISTRIBUTION WIDTH 16.5 % (9.0-15.0); WHITE BLOOD COUNT (AUTO) 10.7 K/uL (4.8-10.8)
[2022-05-02] MEDS: ASPIRIN 81 MG TAB.CHEW PO SCH (09:34)
[2022-05-02] MEDS: MEROPENEM 1 GM in NS 100 ML IV SCH ×2 (09:34→22:22)
[2022-05-02] MEDS: calcitrioL 0.25 MCG CAPSULE PO SCH (09:35)
[2022-05-02] MEDS: GABAPENTIN 300 MG CAPSULE PO SCH ×3 (09:35→22:22)
[2022-05-02] MEDS: FLUoxetine HCL 10 MG CAPSULE (PROzac) PO SCH (09:35)
[2022-05-02] MEDS: METOPROLOL SUCCINATE 25 MG TAB.SR.24H (TOPROL XL) PO SCH (09:36)
[2022-05-02] MEDS: amLODIPine BESYLATE 10 MG TABLET PO SCH (09:36)
[2022-05-02 09:38] LABS: CALCIUM 8.4 mg/dL (8.4-11.0); CREATININE 6.64 mg/dL (0.55-1.30)
[2022-05-02 11:42] VITALS: BP_SYST 142
[2022-05-02] MEDS: MORPHINE 2 MG/ML INJ. SYRINGE IVP PRN (12:34)
[2022-05-02] MEDS: OSELTAMIVIR PHOSPHATE 6 MG/1 ML, 60 ML SUSP PO SCH (12:39)
[2022-05-02 14:43] LABS: BASOPHILS % (MANUAL) 0 % (0-2); EOSINOPHILS % (MANUAL) 3 % (0-7); LYMPHOCYTES % (MANUAL) 27 % (20-46); MONOCYTES % (MANUAL) 5 % (0-11)
[2022-05-02 16:25] VITALS: BP_SYST 116
[2022-05-02 20:00] VITALS: BP_SYST 110
[2022-05-03 00:52] VITALS: BP_SYST 130
[2022-05-03 07:12] LABS: BASOPHILS # (AUTO) 0.1 K/uL (0.0-0.2); BASOPHILS % (AUTO) 0.8 % (0.0-2.0); EOSINOPHILS # (AUTO) 0.3 K/uL (0.0-0.4); EOSINOPHILS % (AUTO) 3.3 % (0.0-4.0); HEMATOCRIT 25.2 % (36-48); HEMOGLOBIN 8.1 g/dL (12.0-16.0); LYMPHOCYTES # (AUTO) 2.9 K/uL (1.0-5.5); LYMPHOCYTES % (AUTO) 31.8 % (20.5-51.5); MEAN CORPUSCULAR HEMOGLOBIN 28 pg (27-31); MEAN CORPUSCULAR HGB CONC 32 % (32-36); MEAN CORPUSCULAR VOLUME 87 fL (79.0-98.0); MONOCYTES # (AUTO) 0.8 K/uL (0.0-1.0); MONOCYTES % (AUTO) 8.6 % (1.7-9.3); NEUTROPHILS # (AUTO) 5.1 K/uL (1.8-7.7); NEUTROPHILS % (AUTO) 55.5 % (40.0-70.0); PLATELET COUNT (AUTO) 350 K/uL (130-430); RED BLOOD CELL COUNT(AUTO) 2.91 MIL/uL (4.2-6.2); RED CELL DISTRIBUTION WIDTH 16.4 % (9.0-15.0); WHITE BLOOD COUNT (AUTO) 9.2 K/uL (4.8-10.8)
[2022-05-03 07:51] LABS: CALCIUM 8.4 mg/dL (8.4-11.0)
[2022-05-03 08:08] LABS: CREATININE 7.83 mg/dL (0.55-1.30)
[2022-05-03] MEDS: ASPIRIN 81 MG TAB.CHEW PO SCH (08:47)
[2022-05-03] MEDS: FLUoxetine HCL 10 MG CAPSULE (PROzac) PO SCH (08:47)
[2022-05-03] MEDS: GABAPENTIN 300 MG CAPSULE PO SCH ×3 (08:47→20:47)
[2022-05-03] MEDS: calcitrioL 0.25 MCG CAPSULE PO SCH (08:48)
[2022-05-03] MEDS: amLODIPine BESYLATE 10 MG TABLET PO SCH (08:48)
[2022-05-03] MEDS: METOPROLOL SUCCINATE 25 MG TAB.SR.24H (TOPROL XL) PO SCH (08:50)
[2022-05-03] MEDS: MEROPENEM 1 GM in NS 100 ML IV SCH ×2 (08:50→20:47)
[2022-05-03 11:57] VITALS: BP_SYST 113
[2022-05-03 17:28] VITALS: BP_SYST 116
[2022-05-03] MEDS: MORPHINE 2 MG/ML INJ. SYRINGE IVP PRN (21:00)
[2022-05-04 01:31] VITALS: BP_SYST 145
[2022-05-04] MEDS ORDERED: OSEL30CA PO (07:42)
[2022-05-04] MEDS: METOPROLOL SUCCINATE 25 MG TAB.SR.24H (TOPROL XL) PO SCH (09:00)
[2022-05-04] MEDS: amLODIPine BESYLATE 10 MG TABLET PO SCH (09:00)
[2022-05-04] MEDS: ASPIRIN 81 MG TAB.CHEW PO SCH (09:42)
[2022-05-04] MEDS: FLUoxetine HCL 10 MG CAPSULE (PROzac) PO SCH (09:43)
[2022-05-04] MEDS: MEROPENEM 1 GM in NS 100 ML IV SCH (09:43)
[2022-05-04] MEDS: calcitrioL 0.25 MCG CAPSULE PO SCH (09:43)
[2022-05-04] MEDS: GABAPENTIN 300 MG CAPSULE PO SCH ×2 (09:46→15:00)
[2022-05-04] MEDS ORDERED: PRO10 PO (10:58)
[2022-05-04] MEDS: OSELTAMIVIR PHOSPHATE 6 MG/1 ML, 60 ML SUSP PO SCH (12:10)
[2022-05-04] MEDS ORDERED: HEPARIN SODIUM,PORCINE 5,000 UNITS/ML VIAL MC ONE (15:15)
[2022-05-04 17:31] VITALS: BP_SYST 97
[2022-05-04 18:05] VITALS: BP_SYST 133
[2022-05-04 18:07] VITALS: BP_SYST 130
== END 2022-05-04 18:08 | disposition home or self-care (01) | DRG 113 ==
LOC: SED 13:45 → STU 17:46 → SMU 05-02 11:17
PROVIDERS: ADMIT Family Medicine; ATTEND Family Medicine
PROC: 5A1D70Z Performance of Urinary Filtration, Intermittent, Less than 6 Hours Per Day (ICD-10-PCS; principal; 2022-04-29)
PROC: 5A1D70Z Performance of Urinary Filtration, Intermittent, Less than 6 Hours Per Day (ICD-10-PCS; 2022-05-01)
PROC: 5A1D70Z Performance of Urinary Filtration, Intermittent, Less than 6 Hours Per Day (ICD-10-PCS; 2022-05-04)
DX: J10.1 Influenza due to other identified influenza virus with other respiratory manifestations (principal); N17.0 Acute kidney failure with tubular necrosis; I21.A1 Myocardial infarction type 2; E83.51 Hypocalcemia; E87.20 Acidosis, unspecified; F33.1 Major depressive disorder, recurrent, moderate; D63.1 Anemia in chronic kidney disease; N39.0 Urinary tract infection, site not specified; J44.9 Chronic obstructive pulmonary disease, unspecified; E66.01 Morbid (severe) obesity due to excess calories; E11.51 Type 2 diabetes mellitus with diabetic peripheral angiopathy without gangrene; I12.0 Hypertensive chronic kidney disease with stage 5 chronic kidney disease or end stage renal disease; E11.22 Type 2 diabetes mellitus with diabetic chronic kidney disease; N18.6 End stage renal disease; Z20.822 Contact with and (suspected) exposure to COVID-19; Z99.2 Dependence on renal dialysis; Z97.13 Presence of artificial right leg (complete) (partial); Z90.710 Acquired absence of both cervix and uterus; Z90.49 Acquired absence of other specified parts of digestive tract; Z89.511 Acquired absence of right leg below knee; Z87.891 Personal history of nicotine dependence; Z86.16 Personal history of COVID-19; Z79.4 Long term (current) use of insulin; Z79.82 Long term (current) use of aspirin; Z79.899 Other long term (current) drug therapy
CPT/HCPCS: 36415; 71045; 73030; 80048; 80053; 80061; 81000; 82728; 82962; 83540; 83550; 83735; 83880; 84443; 84484; 85007; 85025; 85027; 87086; 93005; 93306; 97163-GP; 97530-GP; 99285; G0378; G9035; J0610; J0696; J0885; J1644; J1885; J2060; J2185; J2270; J2405; J2997; J7060

== ENCOUNTER 2022-07-21 12:06 | Inpatient (IN) | payer MEDICAID ==
[~2022-07-21] VITALS: Ht 167.6 cm; Wt 99.8 kg
[~2022-07-21 12:06] MED LIST changes: +OSEL30CA PO; +PRO10 PO
[2022-07-21 12:14] VITALS: BP_SYST 200
[2022-07-21] MEDS ORDERED: ASPIRIN 81 MG TAB.CHEW PO ONE (12:30)
[2022-07-21 12:50] LABS: BASOPHILS # (AUTO) 0.1 K/uL (0.0-0.2); EOSINOPHILS # (AUTO) 0.3 K/uL (0.0-0.4); EOSINOPHILS % (AUTO) 4.3 % (0.0-4.0); HEMATOCRIT 27.6 % (36-48); HEMOGLOBIN 8.6 g/dL (12.0-16.0); LYMPHOCYTES # (AUTO) 2.3 K/uL (1.0-5.5); LYMPHOCYTES % (AUTO) 30.4 % (20.5-51.5); MEAN CORPUSCULAR HEMOGLOBIN 28 pg (27-31); MEAN CORPUSCULAR HGB CONC 31 % (32-36); MEAN CORPUSCULAR VOLUME 90 fL (79.0-98.0); MONOCYTES # (AUTO) 0.5 K/uL (0.0-1.0); MONOCYTES % (AUTO) 6.8 % (1.7-9.3); NEUTROPHILS # (AUTO) 4.4 K/uL (1.8-7.7); NEUTROPHILS % (AUTO) 57.5 % (40.0-70.0); PLATELET COUNT (AUTO) 232 K/uL (130-430); RED BLOOD CELL COUNT(AUTO) 3.08 MIL/uL (4.2-6.2); RED CELL DISTRIBUTION WIDTH 17.5 % (9.0-15.0); WHITE BLOOD COUNT (AUTO) 7.6 K/uL (4.8-10.8)
[2022-07-21 13:08] LABS: ANION GAP 17 (5-15); CALCIUM 7.5 mg/dL (8.4-11.0); CHLORIDE 106 mmol/L (98-107); GFR AFRICAN AMERICAN 8 mL/min (>90); GLUCOSE 115 mg/dL (70-99); UREA NITROGEN, BLOOD 70 mg/dL (8-21)
[2022-07-21 13:26] LABS: ALANINE AMINOTRANSFERASE 9 U/L (12-78); ALBUMIN 2.6 g/dL (3.4-4.8); ASPARTATE AMINOTRANSFERASE 13 U/L (10-37); TOTAL BILIRUBIN 0.2 mg/dL (0.0-1.0)
[2022-07-21 15:16] VITALS: BP_SYST 202
[2022-07-21] MEDS ORDERED: cloNIDine HCL 0.1 MG TABLET PO PRN (19:15)
[2022-07-21 20:00] VITALS: BP_SYST 163
[2022-07-21] MEDS ORDERED: HYDROcodone/ACETAMIN 5-325 MG TAB (NORCO/ VICODIN) PO PRN (21:30)
[2022-07-21] MEDS: HYDROcodone/ACETAMIN 10-325 MG TAB PO PRN (21:58)
[2022-07-21] MEDS ORDERED: ONDANSETRON HCL 4 MG/2 ML VIAL IVP PRN (22:30)
[2022-07-21] MEDS ORDERED: ACETAMINOPHEN 325 MG TABLET PO PRN (22:30)
[2022-07-21] MEDS ORDERED: IPRATROPIUM BROM 0.5 MG/2.5 ML VIAL.NEB (ATROVENT) INH PRN (22:30)
[2022-07-21] MEDS ORDERED: LORazepam 2 MG/ML VIAL IVP PRN (22:30)
[2022-07-21] MEDS ORDERED: INSULIN REGULAR, HUMAN 100 UNITS/ML, 3 ML VIAL (humuLIN R) SUBCUT PRN (22:30)
[2022-07-21] MEDS ORDERED: ALBUTEROL SULFATE 0.083% 2.5 MG/3 ML VIAL.NEB INH PRN (22:30)
[2022-07-21 23:17] VITALS: BP_SYST 163
[2022-07-22] VITALS: BP_SYST 154
[2022-07-22 05:26] LABS: BASOPHILS % (AUTO) 0.5 % (0.0-2.0); EOSINOPHILS # (AUTO) 0.4 K/uL (0.0-0.4); EOSINOPHILS % (AUTO) 4.3 % (0.0-4.0); HEMOGLOBIN 8.9 g/dL (12.0-16.0); LYMPHOCYTES # (AUTO) 3.2 K/uL (1.0-5.5); LYMPHOCYTES % (AUTO) 39.4 % (20.5-51.5); MEAN CORPUSCULAR HEMOGLOBIN 28 pg (27-31); MEAN CORPUSCULAR HGB CONC 31 % (32-36); MEAN CORPUSCULAR VOLUME 91 fL (79.0-98.0); MONOCYTES # (AUTO) 0.6 K/uL (0.0-1.0); MONOCYTES % (AUTO) 7.2 % (1.7-9.3); NEUTROPHILS % (AUTO) 48.6 % (40.0-70.0); PLATELET COUNT (AUTO) 257 K/uL (130-430); RED CELL DISTRIBUTION WIDTH 17.6 % (9.0-15.0); WHITE BLOOD COUNT (AUTO) 8.2 K/uL (4.8-10.8)
[2022-07-22 06:01] LABS: ALBUMIN 2.5 g/dL (3.4-4.8); CALCIUM 7.4 mg/dL (8.4-11.0); CREATININE 6.3 mg/dL (0.55-1.30); PHOSPHORUS 9.5 mg/dL (2.7-4.5); TOTAL BILIRUBIN 0.2 mg/dL (0.0-1.0)
[2022-07-22] MEDS: NORMAL SALINE 5 ML DISP.SYRIN IVF SCH ×3 (06:24→21:15)
[2022-07-22] MEDS ORDERED: DEXTROSE 50% JECT 50 ML DISP.SYRIN IVP ONE (06:45)
[2022-07-22 08:14] VITALS: BP_SYST 144
[2022-07-22] MEDS: METOPROLOL SUCCINATE 25 MG TAB.SR.24H (TOPROL XL) PO SCH (09:00)
[2022-07-22] MEDS ORDERED: levoFLOXacin 750 MG TABLET PO SCH (09:00)
[2022-07-22] MEDS: amLODIPine BESYLATE 10 MG TABLET PO SCH (09:00)
[2022-07-22 11:28] VITALS: BP_SYST 144
[2022-07-22] MEDS: ASPIRIN 81 MG TAB.CHEW PO SCH (12:54)
[2022-07-22] MEDS: GABAPENTIN 300 MG CAPSULE PO SCH ×3 (12:55→21:13)
[2022-07-22] MEDS: FUROSEMIDE 20 MG TABLET PO SCH (12:55)
[2022-07-22] MEDS: FLUoxetine HCL 10 MG CAPSULE (PROzac) PO SCH (12:56)
[2022-07-22 15:39] VITALS: BP_SYST 155
[2022-07-22] MEDS: HYDROcodone/ACETAMIN 10-325 MG TAB PO PRN (17:41)
[2022-07-22 20:00] VITALS: BP_SYST 136
[2022-07-23 05:13] LABS: BASOPHILS % (AUTO) 0.5 % (0.0-2.0); EOSINOPHILS # (AUTO) 0.2 K/uL (0.0-0.4); EOSINOPHILS % (AUTO) 3.6 % (0.0-4.0); HEMATOCRIT 27.8 % (36-48); HEMOGLOBIN 8.9 g/dL (12.0-16.0); LYMPHOCYTES # (AUTO) 2.3 K/uL (1.0-5.5); LYMPHOCYTES % (AUTO) 36.8 % (20.5-51.5); MEAN CORPUSCULAR HEMOGLOBIN 28 pg (27-31); MEAN CORPUSCULAR HGB CONC 32 % (32-36); MEAN CORPUSCULAR VOLUME 88 fL (79.0-98.0); MONOCYTES # (AUTO) 0.5 K/uL (0.0-1.0); MONOCYTES % (AUTO) 7.4 % (1.7-9.3); NEUTROPHILS # (AUTO) 3.3 K/uL (1.8-7.7); NEUTROPHILS % (AUTO) 51.7 % (40.0-70.0); PLATELET COUNT (AUTO) 217 K/uL (130-430); RED BLOOD CELL COUNT(AUTO) 3.17 MIL/uL (4.2-6.2); RED CELL DISTRIBUTION WIDTH 17.2 % (9.0-15.0); WHITE BLOOD COUNT (AUTO) 6.4 K/uL (4.8-10.8)
[2022-07-23 05:36] LABS: CALCIUM 7.7 mg/dL (8.4-11.0); CREATININE 5.24 mg/dL (0.55-1.30); PHOSPHORUS 7.3 mg/dL (2.7-4.5)
[2022-07-23] MEDS: NORMAL SALINE 5 ML DISP.SYRIN IVF SCH ×2 (05:56→13:43)
[2022-07-23 07:25] VITALS: BP_SYST 128
[2022-07-23] MEDS: FLUoxetine HCL 10 MG CAPSULE (PROzac) PO SCH (08:15)
[2022-07-23] MEDS: GABAPENTIN 300 MG CAPSULE PO SCH ×2 (08:15→15:46)
[2022-07-23] MEDS: ASPIRIN 81 MG TAB.CHEW PO SCH (08:15)
[2022-07-23] MEDS: METOPROLOL SUCCINATE 25 MG TAB.SR.24H (TOPROL XL) PO SCH (08:16)
[2022-07-23] MEDS: FUROSEMIDE 20 MG TABLET PO SCH (08:17)
[2022-07-23] MEDS: amLODIPine BESYLATE 10 MG TABLET PO SCH (08:18)
[2022-07-23] MEDS ORDERED: OSELTAMIVIR PHOSPHATE 30 MG CAPSULE PO SCH (09:00)
[2022-07-23 09:40] VITALS: BP_SYST 128
[2022-07-23 11:24] VITALS: BP_SYST 126
[2022-07-23 15:17] VITALS: BP_SYST 113
[2022-07-23 15:34] VITALS: BP_SYST 113
== END 2022-07-23 16:05 | disposition home or self-care (01) | DRG 203 ==
LOC: SED 12:06 → STU 13:57 → SMU 07-23 09:43
PROVIDERS: ADMIT Preventive Medicine Preventive Medicine/Occupational Environmental Medicine; ATTEND Preventive Medicine Preventive Medicine/Occupational Environmental Medicine
PROC: 5A1D70Z Performance of Urinary Filtration, Intermittent, Less than 6 Hours Per Day (ICD-10-PCS; principal; 2022-07-21)
DX: M94.0 Chondrocostal junction syndrome [Tietze] (principal); N17.9 Acute kidney failure, unspecified; I12.0 Hypertensive chronic kidney disease with stage 5 chronic kidney disease or end stage renal disease; E11.22 Type 2 diabetes mellitus with diabetic chronic kidney disease; I24.8 Other forms of acute ischemic heart disease; E11.40 Type 2 diabetes mellitus with diabetic neuropathy, unspecified; I25.10 Atherosclerotic heart disease of native coronary artery without angina pectoris; N18.6 End stage renal disease; J45.909 Unspecified asthma, uncomplicated; Z99.2 Dependence on renal dialysis; Z85.42 Personal history of malignant neoplasm of other parts of uterus; Z72.0 Tobacco use; I25.2 Old myocardial infarction; Z79.82 Long term (current) use of aspirin; Z79.899 Other long term (current) drug therapy
CPT/HCPCS: 36415; 71045; 80048; 80053; 83735; 83880; 84100; 84484; 85025; 87081; 90935; 93005; 94760; 99291; G0378

== ENCOUNTER 2022-08-04 20:16 | Inpatient (IN) | payer MEDICAID ==
[~2022-08-04] VITALS: Ht 167.6 cm; Wt 103.9 kg
[~2022-08-04 20:16] MED LIST changes: -INSU100I26 SQ; -LEVO750T64 PO; -OSEL30CA PO
[2022-08-04 20:35] VITALS: BP_SYST 193; PULSE 75; RESP 18; TEMP 97.3; O2SAT 100
[2022-08-04 23:02] LABS: BASOPHILS # (AUTO) 0.1 K/uL (0.0-0.2); BASOPHILS % (AUTO) 0.6 % (0.0-2.0); EOSINOPHILS # (AUTO) 0.4 K/uL (0.0-0.4); EOSINOPHILS % (AUTO) 4.1 % (0.0-4.0); HEMATOCRIT 25.7 % (36-48); HEMOGLOBIN 8.1 g/dL (12.0-16.0); LYMPHOCYTES # (AUTO) 2.5 K/uL (1.0-5.5); LYMPHOCYTES % (AUTO) 28.4 % (20.5-51.5); MEAN CORPUSCULAR HEMOGLOBIN 29 pg (27-31); MEAN CORPUSCULAR HGB CONC 32 % (32-36); MEAN CORPUSCULAR VOLUME 90 fL (79.0-98.0); MONOCYTES # (AUTO) 0.7 K/uL (0.0-1.0); MONOCYTES % (AUTO) 7.5 % (1.7-9.3); NEUTROPHILS # (AUTO) 5.3 K/uL (1.8-7.7); NEUTROPHILS % (AUTO) 59.4 % (40.0-70.0); PLATELET COUNT (AUTO) 248 K/uL (130-430); RED BLOOD CELL COUNT(AUTO) 2.84 MIL/uL (4.2-6.2); WHITE BLOOD COUNT (AUTO) 8.9 K/uL (4.8-10.8)
[2022-08-05] VITALS (7 sets, daily range): BP systolic 108–140; PULSE 56–69; RESP 16–20; TEMP 97–97.9; O2SAT 94–98
[2022-08-05 00:25] LABS: ALBUMIN 2.6 g/dL (3.4-4.8); CALCIUM 8.3 mg/dL (8.4-11.0); CREATININE 6.32 mg/dL (0.55-1.30); TOTAL BILIRUBIN 0.2 mg/dL (0.0-1.0)
[2022-08-05] MEDS ORDERED: SSNOVOLOG SUBCUT (00:46)
[2022-08-05] MEDS ORDERED: cloNIDine HCL 0.1 MG TABLET PO ONE (01:30)
[2022-08-05] MEDS ORDERED: HYDROcodone/ACETAMIN 5-325 MG TAB (NORCO/ VICODIN) PO PRN ×2 (03:30→11:30)
[2022-08-05] MEDS ORDERED: ACETAMINOPHEN 325 MG TABLET PO PRN ×2 (03:30→11:30)
[2022-08-05] MEDS ORDERED: INSULIN REGULAR, HUMAN 100 UNITS/ML, 3 ML VIAL (humuLIN R) SUBCUT PRN (03:30)
[2022-08-05] MEDS ORDERED: HYDROcodone/ACETAMIN 10-325 MG TAB PO PRN (03:30)
[2022-08-05] MEDS ORDERED: ONDANSETRON HCL 4 MG/2 ML VIAL IVP PRN (11:30)
[2022-08-05] MEDS ORDERED: LORazepam 2 MG/ML VIAL IVP PRN (11:30)
[2022-08-05] MEDS ORDERED: NALOXONE HCL 0.4 MG/ML AMP (NARCAN) IVP PRN ×2 (11:30)
[2022-08-05] MEDS ORDERED: FUROSEMIDE 20 MG TABLET PO ONE (13:00)
[2022-08-05] MEDS ORDERED: ASPIRIN 81 MG TAB.CHEW PO ONE (13:00)
[2022-08-05] MEDS ORDERED: FLUoxetine HCL 10 MG CAPSULE (PROzac) PO ONE (13:00)
[2022-08-05] MEDS ORDERED: amLODIPine BESYLATE 10 MG TABLET PO ONE (13:00)
[2022-08-05] MEDS ORDERED: METOPROLOL SUCCINATE 25 MG TAB.SR.24H (TOPROL XL) PO ONE (13:00)
[2022-08-05] MEDS ORDERED: NORMAL SALINE 5 ML DISP.SYRIN IVF SCH (14:00)
[2022-08-05] MEDS: guaiFENesin/DEXTROMETHORPHAN 10 ML UDC PO PRN (14:59)
[2022-08-05] MEDS: NORMAL SALINE 5 ML DISP.SYRIN IVF SCH ×2 (14:59→21:57)
[2022-08-05] MEDS: GABAPENTIN 300 MG CAPSULE PO SCH ×3 (14:59→21:44)
[2022-08-05] MEDS ORDERED: HEPARIN SODIUM,PORCINE 3000 UNITS/0.6 ML BOLUS IVP PRN (17:15)
[2022-08-05] MEDS ORDERED: HEPARIN SODIUM,PORCINE 2000 UNITS/0.4 ML BOLUS IVP PRN (17:15)
[2022-08-05] MEDS ORDERED: *HEPARIN PER PHARMACY XX PRN (17:15)
[2022-08-05] MEDS ORDERED: HEPARIN SODIUM,PORCINE 5,000 UNITS/ML VIAL IVP ONE (18:45)
[2022-08-05] MEDS: HEPARIN 25,000 UNITS in 250 ML PREMIX IV PRN (19:26)
[2022-08-05] MEDS ORDERED: HEPARIN SODIUM,PORCINE 5,000 UNITS/ML VIAL ONE (21:00)
[2022-08-05] MEDS ORDERED: ALBUMIN HUMAN 25% 200 ML IV ONE (21:00)
[2022-08-05] MEDS: HYDROcodone/ACETAMIN 10-325 MG TAB PO PRN (21:46)
[2022-08-06] VITALS (7 sets, daily range): BP systolic 110–161; PULSE 67–78; RESP 16–20; TEMP 98–100.2; O2SAT 93–99
[2022-08-06] MEDS: HYDROcodone/ACETAMIN 10-325 MG TAB PO PRN (05:07)
[2022-08-06] MEDS: guaiFENesin/DEXTROMETHORPHAN 10 ML UDC PO PRN (05:15)
[2022-08-06] MEDS: NORMAL SALINE 5 ML DISP.SYRIN IVF SCH ×3 (06:00→21:02)
[2022-08-06 07:36] LABS: BASOPHILS % (AUTO) 0.6 % (0.0-2.0); EOSINOPHILS # (AUTO) 0.3 K/uL (0.0-0.4); EOSINOPHILS % (AUTO) 3.1 % (0.0-4.0); HEMATOCRIT 23.5 % (36-48); HEMOGLOBIN 7.3 g/dL (12.0-16.0); LYMPHOCYTES # (AUTO) 1.7 K/uL (1.0-5.5); MEAN CORPUSCULAR HEMOGLOBIN 28 pg (27-31); MEAN CORPUSCULAR HGB CONC 31 % (32-36); MEAN CORPUSCULAR VOLUME 89 fL (79.0-98.0); MONOCYTES # (AUTO) 0.4 K/uL (0.0-1.0); NEUTROPHILS % (AUTO) 71.3 % (40.0-70.0); PLATELET COUNT (AUTO) 223 K/uL (130-430); RED BLOOD CELL COUNT(AUTO) 2.65 MIL/uL (4.2-6.2); RED CELL DISTRIBUTION WIDTH 17.2 % (9.0-15.0); WHITE BLOOD COUNT (AUTO) 8.4 K/uL (4.8-10.8)
[2022-08-06 07:42] LABS: ALBUMIN 2.8 g/dL (3.4-4.8); CALCIUM 7.4 mg/dL (8.4-11.0); CREATININE 4.89 mg/dL (0.55-1.30); PHOSPHORUS 6.2 mg/dL (2.7-4.5); TOTAL BILIRUBIN 0.3 mg/dL (0.0-1.0)
[2022-08-06] MEDS: FLUoxetine HCL 10 MG CAPSULE (PROzac) PO SCH (10:02)
[2022-08-06] MEDS: ASPIRIN 81 MG TAB.CHEW PO SCH (10:02)
[2022-08-06] MEDS: FUROSEMIDE 20 MG TABLET PO SCH (10:02)
[2022-08-06] MEDS: METOPROLOL SUCCINATE 25 MG TAB.SR.24H (TOPROL XL) PO SCH (10:03)
[2022-08-06] MEDS: amLODIPine BESYLATE 10 MG TABLET PO SCH (10:04)
[2022-08-06] MEDS: GABAPENTIN 300 MG CAPSULE PO SCH ×2 (15:20→21:00)
[2022-08-07 00:23] VITALS: BP_SYST 138; PULSE 75; RESP 20; TEMP 99.1; O2SAT 92
[2022-08-07] MEDS: HEPARIN 25,000 UNITS in 250 ML PREMIX IV PRN (02:06)
[2022-08-07] MEDS: HYDROcodone/ACETAMIN 10-325 MG TAB PO PRN ×2 (04:08→11:18)
[2022-08-07 04:41] LABS: BASOPHILS # (AUTO) 0.1 K/uL (0.0-0.2); BASOPHILS % (AUTO) 0.7 % (0.0-2.0); EOSINOPHILS % (AUTO) 0.3 % (0.0-4.0); HEMATOCRIT 24.9 % (36-48); HEMOGLOBIN 7.8 g/dL (12.0-16.0); MEAN CORPUSCULAR HEMOGLOBIN 28 pg (27-31); MEAN CORPUSCULAR HGB CONC 31 % (32-36); MEAN CORPUSCULAR VOLUME 90 fL (79.0-98.0); MONOCYTES # (AUTO) 0.5 K/uL (0.0-1.0); MONOCYTES % (AUTO) 7.5 % (1.7-9.3); NEUTROPHILS # (AUTO) 5.5 K/uL (1.8-7.7); NEUTROPHILS % (AUTO) 77.5 % (40.0-70.0); PLATELET COUNT (AUTO) 218 K/uL (130-430); RED BLOOD CELL COUNT(AUTO) 2.78 MIL/uL (4.2-6.2); RED CELL DISTRIBUTION WIDTH 16.9 % (9.0-15.0)
[2022-08-07 05:03] LABS: ALBUMIN 2.8 g/dL (3.4-4.8); CALCIUM 7.2 mg/dL (8.4-11.0); CREATININE 5.86 mg/dL (0.55-1.30); PHOSPHORUS 6.4 mg/dL (2.7-4.5); TOTAL BILIRUBIN 0.4 mg/dL (0.0-1.0)
[2022-08-07] MEDS: NORMAL SALINE 5 ML DISP.SYRIN IVF SCH (06:31)
[2022-08-07 08:00] VITALS: BP_SYST 162; PULSE 69; RESP 16; TEMP 98.1; O2SAT 100
[2022-08-07] MEDS: FLUoxetine HCL 10 MG CAPSULE (PROzac) PO SCH (08:46)
[2022-08-07] MEDS: ASPIRIN 81 MG TAB.CHEW PO SCH (08:47)
[2022-08-07] MEDS: FUROSEMIDE 20 MG TABLET PO SCH (08:47)
[2022-08-07] MEDS: GABAPENTIN 300 MG CAPSULE PO SCH ×3 (08:48→21:25)
[2022-08-07] MEDS: METOPROLOL SUCCINATE 25 MG TAB.SR.24H (TOPROL XL) PO SCH (08:48)
[2022-08-07] MEDS: amLODIPine BESYLATE 10 MG TABLET PO SCH (08:48)
[2022-08-07 11:25] VITALS: BP_SYST 119; PULSE 60; RESP 18; TEMP 97.7; O2SAT 94
[2022-08-07] MEDS: traMADol HCL HCL 50 MG TABLET (ULTRAM) PO PRN ×2 (15:35→21:13)
[2022-08-07 16:36] VITALS: BP_SYST 162; PULSE 70; RESP 20; TEMP 98; O2SAT 94
[2022-08-07] MEDS: EPOETIN ALFA-EPBX 3,000 UNITS/ML VIAL SUBCUT SCH (17:04)
[2022-08-07 21:00] VITALS: BP_SYST 145; PULSE 75; RESP 18; TEMP 98.5; O2SAT 96
[2022-08-07] MEDS: DOCUSATE SODIUM 100 MG CAPSULE PO SCH (21:26)
[2022-08-08] VITALS (8 sets, daily range): BP systolic 97–164; PULSE 52–72; RESP 18–20; TEMP 97.3–98.9; O2SAT 93–100
[2022-08-08 05:25] LABS: BASOPHILS # (AUTO) 0.1 K/uL (0.0-0.2); BASOPHILS % (AUTO) 0.8 % (0.0-2.0); EOSINOPHILS % (AUTO) 0.2 % (0.0-4.0); HEMATOCRIT 25.1 % (36-48); HEMOGLOBIN 7.9 g/dL (12.0-16.0); LYMPHOCYTES % (AUTO) 13.3 % (20.5-51.5); MEAN CORPUSCULAR HEMOGLOBIN 28 pg (27-31); MEAN CORPUSCULAR HGB CONC 32 % (32-36); MEAN CORPUSCULAR VOLUME 88 fL (79.0-98.0); MONOCYTES # (AUTO) 0.7 K/uL (0.0-1.0); MONOCYTES % (AUTO) 9.8 % (1.7-9.3); NEUTROPHILS # (AUTO) 5.8 K/uL (1.8-7.7); NEUTROPHILS % (AUTO) 75.9 % (40.0-70.0); PLATELET COUNT (AUTO) 189 K/uL (130-430); RED BLOOD CELL COUNT(AUTO) 2.85 MIL/uL (4.2-6.2); RED CELL DISTRIBUTION WIDTH 16.8 % (9.0-15.0); WHITE BLOOD COUNT (AUTO) 7.6 K/uL (4.8-10.8)
[2022-08-08 05:28] LABS: CREATININE 5.2 mg/dL (0.55-1.30)
[2022-08-08] MEDS: ASPIRIN 81 MG TAB.CHEW PO SCH (09:49)
[2022-08-08] MEDS: DOCUSATE SODIUM 100 MG CAPSULE PO SCH ×2 (09:49→21:00)
[2022-08-08] MEDS: FLUoxetine HCL 10 MG CAPSULE (PROzac) PO SCH (09:50)
[2022-08-08] MEDS: amLODIPine BESYLATE 10 MG TABLET PO SCH (09:50)
[2022-08-08] MEDS: FUROSEMIDE 20 MG TABLET PO SCH (09:50)
[2022-08-08] MEDS: GABAPENTIN 300 MG CAPSULE PO SCH ×3 (09:51→20:51)
[2022-08-08] MEDS: METOPROLOL SUCCINATE 25 MG TAB.SR.24H (TOPROL XL) PO SCH (09:51)
[2022-08-08] MEDS: traMADol HCL HCL 50 MG TABLET (ULTRAM) PO PRN (10:02)
[2022-08-08] MEDS: guaiFENesin/DEXTROMETHORPHAN 10 ML UDC PO PRN (10:04)
[2022-08-08] MEDS: HEPARIN 25,000 UNITS in 250 ML PREMIX IV PRN ×3 (12:09→21:48)
[2022-08-08 12:31] LABS: INR 1.1 (0.8-1.2)
[2022-08-08] MEDS ORDERED: WARFARIN SODIUM 5 MG TABLET PO SCH (18:00)
[2022-08-09] VITALS (7 sets, daily range): BP systolic 104–129; PULSE 18–57; RESP 17–20; TEMP 97.3–98.4; O2SAT 95–100
[2022-08-09] MEDS: guaiFENesin/DEXTROMETHORPHAN 10 ML UDC PO PRN ×3 (03:40→23:58)
[2022-08-09] MEDS ORDERED: TRAM50TA2 PO (04:14)
[2022-08-09] MEDS ORDERED: METO-540 PO (04:14)
[2022-08-09] MEDS ORDERED: DOCU-144 PO (04:14)
[2022-08-09] MEDS ORDERED: APIX2.5T PO ×3 (04:14→12:37)
[2022-08-09 05:51] LABS: BASOPHILS % (AUTO) 0.4 % (0.0-2.0); EOSINOPHILS # (AUTO) 0.4 K/uL (0.0-0.4); EOSINOPHILS % (AUTO) 4.9 % (0.0-4.0); HEMATOCRIT 25.1 % (36-48); HEMOGLOBIN 7.9 g/dL (12.0-16.0); LYMPHOCYTES # (AUTO) 2.6 K/uL (1.0-5.5); LYMPHOCYTES % (AUTO) 34.6 % (20.5-51.5); MEAN CORPUSCULAR HEMOGLOBIN 28 pg (27-31); MEAN CORPUSCULAR HGB CONC 32 % (32-36); MEAN CORPUSCULAR VOLUME 89 fL (79.0-98.0); MONOCYTES % (AUTO) 12.8 % (1.7-9.3); NEUTROPHILS # (AUTO) 3.6 K/uL (1.8-7.7); NEUTROPHILS % (AUTO) 47.3 % (40.0-70.0); PLATELET COUNT (AUTO) 193 K/uL (130-430); WHITE BLOOD COUNT (AUTO) 7.6 K/uL (4.8-10.8)
[2022-08-09 05:54] LABS: PROTHROMBIN TIME 10.4 SECS (9.5-12.5)
[2022-08-09 06:02] LABS: CREATININE 6.18 mg/dL (0.55-1.30); PHOSPHORUS 6.9 mg/dL (2.7-4.5)
[2022-08-09] MEDS: ASPIRIN 81 MG TAB.CHEW PO SCH (08:30)
[2022-08-09] MEDS: GABAPENTIN 300 MG CAPSULE PO SCH ×3 (08:30→20:09)
[2022-08-09] MEDS: FUROSEMIDE 20 MG TABLET PO SCH (08:30)
[2022-08-09] MEDS: METOPROLOL SUCCINATE 25 MG TAB.SR.24H (TOPROL XL) PO SCH (08:31)
[2022-08-09] MEDS: FLUoxetine HCL 10 MG CAPSULE (PROzac) PO SCH (08:32)
[2022-08-09] MEDS: amLODIPine BESYLATE 10 MG TABLET PO SCH (08:32)
[2022-08-09] MEDS: DOCUSATE SODIUM 100 MG CAPSULE PO SCH ×2 (08:36→20:18)
[2022-08-09] MEDS ORDERED: APIX5TAB4 PO (12:37)
[2022-08-09] MEDS ORDERED: APIXABAN 2.5 MG TABLET PO ONE (12:45)
[2022-08-09 14:32] LABS: CLARITY/URINE CLOUDY (CLEAR); COLOR,URINE RED (YELLOW); GLUCOSE,URINE NEGATIVE (NEGATIVE); KETONES,URINE NEGATIVE (NEGATIVE); PROTEIN URINE 3+ (NEGATIVE)
[2022-08-09 14:33] LABS: BILIRUBIN,URINE NEGATIVE (NEGATIVE); BLOOD, URINE 3+ (NEGATIVE); LEUKOCYTE ESTERASE ,URINE NEGATIVE (NEGATIVE)
[2022-08-09 14:34] LABS: NITRITE, URINE NEGATIVE (NEGATIVE); UROBILINOGEN,URINE 0.2 (0.2-1.0)
[2022-08-09 14:43] LABS: BACTERIA,URINE MODERATE /HPF (None Seen); RBC,URINE 80-100 /HPF (0-3); WBC,URINE 0-3 /HPF (0-3)
[2022-08-09 14:45] LABS: MUCUS,URINE None Seen /LPF (None Seen)
[2022-08-09] MEDS: traMADol HCL HCL 50 MG TABLET (ULTRAM) PO PRN (20:19)
[2022-08-09] MEDS: APIXABAN 2.5 MG TABLET PO SCH (20:21)
[2022-08-10] VITALS (8 sets, daily range): BP systolic 109–158; PULSE 54–92; RESP 16–22; TEMP 96.6–98.4; O2SAT 95–100
[2022-08-10 05:22] LABS: BASOPHILS % (AUTO) 0.5 % (0.0-2.0); EOSINOPHILS # (AUTO) 0.4 K/uL (0.0-0.4); EOSINOPHILS % (AUTO) 4.8 % (0.0-4.0); HEMATOCRIT 23.2 % (36-48); HEMOGLOBIN 7.5 g/dL (12.0-16.0); LYMPHOCYTES # (AUTO) 2.3 K/uL (1.0-5.5); LYMPHOCYTES % (AUTO) 31.5 % (20.5-51.5); MEAN CORPUSCULAR HEMOGLOBIN 28 pg (27-31); MEAN CORPUSCULAR HGB CONC 32 % (32-36); MEAN CORPUSCULAR VOLUME 88 fL (79.0-98.0); MONOCYTES # (AUTO) 0.9 K/uL (0.0-1.0); MONOCYTES % (AUTO) 12.1 % (1.7-9.3); NEUTROPHILS # (AUTO) 3.8 K/uL (1.8-7.7); NEUTROPHILS % (AUTO) 51.1 % (40.0-70.0); PLATELET COUNT (AUTO) 178 K/uL (130-430); RED BLOOD CELL COUNT(AUTO) 2.64 MIL/uL (4.2-6.2); RED CELL DISTRIBUTION WIDTH 16.5 % (9.0-15.0); WHITE BLOOD COUNT (AUTO) 7.4 K/uL (4.8-10.8)
[2022-08-10 05:48] LABS: ALBUMIN 2.6 g/dL (3.4-4.8); CALCIUM 7.2 mg/dL (8.4-11.0); CREATININE 7.07 mg/dL (0.55-1.30); PHOSPHORUS 6.9 mg/dL (2.7-4.5); TOTAL BILIRUBIN 0.4 mg/dL (0.0-1.0)
[2022-08-10] MEDS: guaiFENesin/DEXTROMETHORPHAN 10 ML UDC PO PRN (06:36)
[2022-08-10 06:37] LABS: PROTHROMBIN TIME 10.5 SECS (9.5-12.5)
[2022-08-10] MEDS: FLUoxetine HCL 10 MG CAPSULE (PROzac) PO SCH (08:16)
[2022-08-10] MEDS: traMADol HCL HCL 50 MG TABLET (ULTRAM) PO PRN ×2 (08:16→14:32)
[2022-08-10] MEDS: DOCUSATE SODIUM 100 MG CAPSULE PO SCH ×2 (08:17→21:32)
[2022-08-10] MEDS: GABAPENTIN 300 MG CAPSULE PO SCH ×3 (08:17→21:32)
[2022-08-10] MEDS: ASPIRIN 81 MG TAB.CHEW PO SCH (08:17)
[2022-08-10] MEDS: FUROSEMIDE 20 MG TABLET PO SCH (08:18)
[2022-08-10] MEDS: METOPROLOL SUCCINATE 25 MG TAB.SR.24H (TOPROL XL) PO SCH (08:18)
[2022-08-10] MEDS: APIXABAN 2.5 MG TABLET PO SCH ×2 (08:19→21:00)
[2022-08-10] MEDS: amLODIPine BESYLATE 10 MG TABLET PO SCH (08:22)
[2022-08-10] MEDS ORDERED: HEPARIN SODIUM,PORCINE 5,000 UNITS/ML VIAL MC ONE (14:45)
[2022-08-10] MEDS: EPOETIN ALFA-EPBX 3,000 UNITS/ML VIAL SUBCUT SCH (16:54)
[2022-08-11 00:01] VITALS: BP_SYST 112; PULSE 86; RESP 17; TEMP 96.5; O2SAT 97
[2022-08-11 05:17] LABS: BASOPHILS % (AUTO) 0.1 % (0.0-2.0); EOSINOPHILS % (AUTO) 0.1 % (0.0-4.0); HEMATOCRIT 26.1 % (36-48); HEMOGLOBIN 8.1 g/dL (12.0-16.0); MEAN CORPUSCULAR HEMOGLOBIN 28 pg (27-31); MEAN CORPUSCULAR HGB CONC 31 % (32-36); MEAN CORPUSCULAR VOLUME 90 fL (79.0-98.0); MONOCYTES # (AUTO) 1.9 K/uL (0.0-1.0); MONOCYTES % (AUTO) 7.5 % (1.7-9.3); NEUTROPHILS # (AUTO) 22.6 K/uL (1.8-7.7); NEUTROPHILS % (AUTO) 88.3 % (40.0-70.0); PLATELET COUNT (AUTO) 181 K/uL (130-430); RED CELL DISTRIBUTION WIDTH 16.8 % (9.0-15.0); WHITE BLOOD COUNT (AUTO) 25.6 K/uL (4.8-10.8)
[2022-08-11 05:49] LABS: CALCIUM 7.6 mg/dL (8.4-11.0); CREATININE 6.11 mg/dL (0.55-1.30); PHOSPHORUS 5.4 mg/dL (2.7-4.5)
[2022-08-11] MEDS: INSULIN REGULAR, HUMAN 100 UNITS/ML, 3 ML VIAL (humuLIN R) SUBCUT PRN ×3 (06:22→21:15)
[2022-08-11 07:53] VITALS: BP_SYST 122; PULSE 74; RESP 20; TEMP 96.8; O2SAT 97
[2022-08-11] MEDS: ASPIRIN 81 MG TAB.CHEW PO SCH (08:32)
[2022-08-11] MEDS: FLUoxetine HCL 10 MG CAPSULE (PROzac) PO SCH (08:32)
[2022-08-11] MEDS: METOPROLOL SUCCINATE 25 MG TAB.SR.24H (TOPROL XL) PO SCH (08:33)
[2022-08-11] MEDS: DOCUSATE SODIUM 100 MG CAPSULE PO SCH ×3 (08:33→21:00)
[2022-08-11] MEDS: GABAPENTIN 300 MG CAPSULE PO SCH ×3 (08:33→21:11)
[2022-08-11] MEDS: FUROSEMIDE 20 MG TABLET PO SCH (08:33)
[2022-08-11] MEDS: APIXABAN 2.5 MG TABLET PO SCH ×2 (08:34→21:00)
[2022-08-11] MEDS: amLODIPine BESYLATE 10 MG TABLET PO SCH (08:34)
[2022-08-11 09:00] VITALS: O2SAT 97
[2022-08-11] MEDS: traMADol HCL HCL 50 MG TABLET (ULTRAM) PO PRN ×2 (10:38→21:12)
[2022-08-11 10:52] LABS: BASOPHILS % (AUTO) 0.2 % (0.0-2.0); HEMATOCRIT 24.5 % (36-48); HEMOGLOBIN 7.7 g/dL (12.0-16.0); LYMPHOCYTES # (AUTO) 1.5 K/uL (1.0-5.5); MEAN CORPUSCULAR HEMOGLOBIN 28 pg (27-31); MEAN CORPUSCULAR HGB CONC 32 % (32-36); MEAN CORPUSCULAR VOLUME 90 fL (79.0-98.0); MONOCYTES # (AUTO) 1.3 K/uL (0.0-1.0); MONOCYTES % (AUTO) 5.8 % (1.7-9.3); PLATELET COUNT (AUTO) 169 K/uL (130-430); RED BLOOD CELL COUNT(AUTO) 2.73 MIL/uL (4.2-6.2); WHITE BLOOD COUNT (AUTO) 21.8 K/uL (4.8-10.8)
[2022-08-11 11:36] VITALS: BP_SYST 126; PULSE 65; RESP 16; TEMP 97.2; O2SAT 96
[2022-08-11 16:07] VITALS: BP_SYST 101; PULSE 61; RESP 16; TEMP 97.8; O2SAT 98
[2022-08-11 20:00] VITALS: BP_SYST 126; PULSE 78; RESP 18; O2SAT 96
[2022-08-12] VITALS (7 sets, daily range): BP systolic 107–134; PULSE 71–86; RESP 16–20; TEMP 97.6–103.2; O2SAT 93–97
[2022-08-12] MEDS: ACETAMINOPHEN 325 MG TABLET PO PRN ×2 (02:36→21:36)
[2022-08-12 05:57] LABS: BASOPHILS % (AUTO) 0.2 % (0.0-2.0); EOSINOPHILS % (AUTO) 0.1 % (0.0-4.0); HEMATOCRIT 25.6 % (36-48); HEMOGLOBIN 8.3 g/dL (12.0-16.0); LYMPHOCYTES # (AUTO) 0.8 K/uL (1.0-5.5); MEAN CORPUSCULAR HEMOGLOBIN 29 pg (27-31); MEAN CORPUSCULAR HGB CONC 32 % (32-36); MEAN CORPUSCULAR VOLUME 88 fL (79.0-98.0); MONOCYTES # (AUTO) 0.4 K/uL (0.0-1.0); MONOCYTES % (AUTO) 2.9 % (1.7-9.3); NEUTROPHILS # (AUTO) 13.7 K/uL (1.8-7.7); NEUTROPHILS % (AUTO) 91.8 % (40.0-70.0); PLATELET COUNT (AUTO) 158 K/uL (130-430); RED CELL DISTRIBUTION WIDTH 16.9 % (9.0-15.0)
[2022-08-12 06:19] LABS: C-REACTIVE PROTEIN QUANT 24.1 mg/dL (0-0.5); CALCIUM 7.8 mg/dL (8.4-11.0); CREATININE 6.43 mg/dL (0.55-1.30); PHOSPHORUS 4.2 mg/dL (2.7-4.5)
[2022-08-12 06:44] LABS: ERYTHROCYTE SEDIMENTATION RATE 24 MM/HR (0-20)
[2022-08-12] MEDS ORDERED: VANCOMYCIN HCL 1,500 MG in NS 250 ML IV SCH (07:30)
[2022-08-12] MEDS: DOCUSATE SODIUM 100 MG CAPSULE PO SCH ×2 (09:00→21:00)
[2022-08-12] MEDS: amLODIPine BESYLATE 10 MG TABLET PO SCH (09:00)
[2022-08-12] MEDS: METOPROLOL SUCCINATE 25 MG TAB.SR.24H (TOPROL XL) PO SCH (09:00)
[2022-08-12] MEDS: traMADol HCL HCL 50 MG TABLET (ULTRAM) PO PRN (12:06)
[2022-08-12] MEDS: INSULIN REGULAR, HUMAN 100 UNITS/ML, 3 ML VIAL (humuLIN R) SUBCUT PRN ×2 (12:42→23:10)
[2022-08-12] MEDS: FLUoxetine HCL 10 MG CAPSULE (PROzac) PO SCH (12:45)
[2022-08-12] MEDS: GABAPENTIN 300 MG CAPSULE PO SCH ×3 (12:46→21:36)
[2022-08-12] MEDS: ASPIRIN 81 MG TAB.CHEW PO SCH (12:47)
[2022-08-12] MEDS: FUROSEMIDE 20 MG TABLET PO SCH (12:50)
[2022-08-12] MEDS: CEFEPIME 0.5 GM in D5W 50 ML IV SCH (15:00)
[2022-08-12] MEDS: APIXABAN 2.5 MG TABLET PO SCH ×2 (15:09→21:43)
[2022-08-12] MEDS: EPOETIN ALFA-EPBX 10,000 UNITS/ML VIAL SUBCUT SCH (16:31)
[2022-08-13] VITALS (9 sets, daily range): BP systolic 80–124; PULSE 66–93; RESP 16–20; TEMP 97–100.4; O2SAT 91–98
[2022-08-13 08:06] LABS: BASOPHILS # (AUTO) 0.1 K/uL (0.0-0.2); BASOPHILS % (AUTO) 0.3 % (0.0-2.0); EOSINOPHILS # (AUTO) 0.2 K/uL (0.0-0.4); HEMATOCRIT 24.9 % (36-48); HEMOGLOBIN 7.7 g/dL (12.0-16.0); LYMPHOCYTES # (AUTO) 2.2 K/uL (1.0-5.5); LYMPHOCYTES % (AUTO) 13.7 % (20.5-51.5); MEAN CORPUSCULAR HEMOGLOBIN 28 pg (27-31); MEAN CORPUSCULAR HGB CONC 31 % (32-36); MEAN CORPUSCULAR VOLUME 89 fL (79.0-98.0); MONOCYTES # (AUTO) 1.5 K/uL (0.0-1.0); MONOCYTES % (AUTO) 9.7 % (1.7-9.3); NEUTROPHILS # (AUTO) 11.9 K/uL (1.8-7.7); NEUTROPHILS % (AUTO) 75.3 % (40.0-70.0); PLATELET COUNT (AUTO) 148 K/uL (130-430); RED BLOOD CELL COUNT(AUTO) 2.78 MIL/uL (4.2-6.2); RED CELL DISTRIBUTION WIDTH 17.4 % (9.0-15.0); WHITE BLOOD COUNT (AUTO) 15.9 K/uL (4.8-10.8)
[2022-08-13] MEDS: DOCUSATE SODIUM 100 MG CAPSULE PO SCH ×3 (08:37→20:59)
[2022-08-13] MEDS: GABAPENTIN 300 MG CAPSULE PO SCH ×3 (08:37→20:38)
[2022-08-13] MEDS: FLUoxetine HCL 10 MG CAPSULE (PROzac) PO SCH (08:37)
[2022-08-13] MEDS: ASPIRIN 81 MG TAB.CHEW PO SCH (08:38)
[2022-08-13 08:40] LABS: CALCIUM 8.7 mg/dL (8.4-11.0); CREATININE 5.32 mg/dL (0.55-1.30); PHOSPHORUS 5.3 mg/dL (2.7-4.5); VANCOMYCIN,RANDOM 16.6 ug/mL
[2022-08-13] MEDS: APIXABAN 2.5 MG TABLET PO SCH ×2 (08:42→20:39)
[2022-08-13 08:53] LABS: C-REACTIVE PROTEIN QUANT 27.2 mg/dL (0-0.5)
[2022-08-13 09:17] LABS: ERYTHROCYTE SEDIMENTATION RATE 34 MM/HR (0-20)
[2022-08-13] MEDS: CEFEPIME 0.5 GM in D5W 50 ML IV SCH (10:19)
[2022-08-13] MEDS: METOPROLOL SUCCINATE 25 MG TAB.SR.24H (TOPROL XL) PO SCH (10:47)
[2022-08-13] MEDS: amLODIPine BESYLATE 10 MG TABLET PO SCH (10:48)
[2022-08-13] MEDS: FUROSEMIDE 20 MG TABLET PO SCH (10:48)
[2022-08-13] MEDS: traMADol HCL HCL 50 MG TABLET (ULTRAM) PO PRN (10:50)
[2022-08-13] MEDS: INSULIN REGULAR, HUMAN 100 UNITS/ML, 3 ML VIAL (humuLIN R) SUBCUT PRN ×2 (11:53→21:24)
[2022-08-13] MEDS: ACETAMINOPHEN 325 MG TABLET PO PRN (14:30)
[2022-08-13] MEDS ORDERED: NS 250 ML IV ONE (20:30)
[2022-08-14 00:14] VITALS: BP_SYST 89; PULSE 61; RESP 20; TEMP 96.5; O2SAT 95
[2022-08-14] MEDS: MIDODRINE HCL 5 MG TABLET (PROAMATINE) PO SCH ×4 (01:40→20:51)
[2022-08-14 05:00] VITALS: BP_SYST 120
[2022-08-14 05:21] LABS: BASOPHILS # (AUTO) 0.1 K/uL (0.0-0.2); BASOPHILS % (AUTO) 0.4 % (0.0-2.0); EOSINOPHILS # (AUTO) 0.1 K/uL (0.0-0.4); EOSINOPHILS % (AUTO) 0.9 % (0.0-4.0); HEMATOCRIT 22.8 % (36-48); HEMOGLOBIN 7.2 g/dL (12.0-16.0); LYMPHOCYTES # (AUTO) 2.4 K/uL (1.0-5.5); LYMPHOCYTES % (AUTO) 17.3 % (20.5-51.5); MEAN CORPUSCULAR HEMOGLOBIN 28 pg (27-31); MEAN CORPUSCULAR HGB CONC 31 % (32-36); MEAN CORPUSCULAR VOLUME 90 fL (79.0-98.0); MONOCYTES # (AUTO) 1.6 K/uL (0.0-1.0); MONOCYTES % (AUTO) 11.1 % (1.7-9.3); NEUTROPHILS # (AUTO) 9.9 K/uL (1.8-7.7); NEUTROPHILS % (AUTO) 70.3 % (40.0-70.0); PLATELET COUNT (AUTO) 156 K/uL (130-430); RED BLOOD CELL COUNT(AUTO) 2.55 MIL/uL (4.2-6.2)
[2022-08-14 05:54] LABS: ALBUMIN 2.2 g/dL (3.4-4.8); CALCIUM 8.3 mg/dL (8.4-11.0); CREATININE 6.5 mg/dL (0.55-1.30); TOTAL BILIRUBIN 0.4 mg/dL (0.0-1.0)
[2022-08-14 06:41] LABS: C-REACTIVE PROTEIN QUANT 27.9 mg/dL (0-0.5)
[2022-08-14 07:05] LABS: ERYTHROCYTE SEDIMENTATION RATE 25 MM/HR (0-20)
[2022-08-14 08:00] VITALS: BP_SYST 110; PULSE 65; RESP 18; TEMP 98.7; O2SAT 93
[2022-08-14] MEDS: ASPIRIN 81 MG TAB.CHEW PO SCH (08:55)
[2022-08-14] MEDS: FLUoxetine HCL 10 MG CAPSULE (PROzac) PO SCH (08:55)
[2022-08-14] MEDS: GABAPENTIN 300 MG CAPSULE PO SCH ×3 (08:55→20:51)
[2022-08-14] MEDS: APIXABAN 2.5 MG TABLET PO SCH ×2 (08:57→20:53)
[2022-08-14] MEDS: DOCUSATE SODIUM 100 MG CAPSULE PO SCH ×2 (09:00→20:51)
[2022-08-14] MEDS: METOPROLOL SUCCINATE 25 MG TAB.SR.24H (TOPROL XL) PO SCH (09:00)
[2022-08-14] MEDS: amLODIPine BESYLATE 10 MG TABLET PO SCH (09:00)
[2022-08-14] MEDS: FUROSEMIDE 20 MG TABLET PO SCH (09:00)
[2022-08-14] MEDS: CEFEPIME 0.5 GM in D5W 50 ML IV SCH (09:29)
[2022-08-14 12:00] VITALS: BP_SYST 115; PULSE 63; RESP 19; TEMP 97.8; O2SAT 97
[2022-08-14 13:07] LABS: HEPATITIS B CORE AB, TOTAL Negative (Negative); HEPATITIS B SURFACE AG Negative (Negative); HEPATITIS C VIRUS AB Non Reactive (Non Reactive)
[2022-08-14] MEDS: traMADol HCL HCL 50 MG TABLET (ULTRAM) PO PRN (15:15)
[2022-08-14] MEDS: EPOETIN ALFA-EPBX 10,000 UNITS/ML VIAL SUBCUT SCH (16:46)
[2022-08-14] MEDS: INSULIN REGULAR, HUMAN 100 UNITS/ML, 3 ML VIAL (humuLIN R) SUBCUT PRN ×2 (16:52→21:32)
[2022-08-14 16:59] VITALS: BP_SYST 112; PULSE 64; RESP 18; TEMP 98.4; O2SAT 98
[2022-08-14 20:00] VITALS: BP_SYST 135; PULSE 67; RESP 18; TEMP 99.7; O2SAT 97; O2SAT 98
[2022-08-14] MEDS: NYSTATIN 15 GM TOPICAL POWDER TP SCH (20:54)
[2022-08-15 03:45] VITALS: BP_SYST 142; PULSE 86; RESP 18; TEMP 99.1; O2SAT 96
[2022-08-15 06:20] LABS: BASOPHILS % (AUTO) 0.3 % (0.0-2.0); EOSINOPHILS # (AUTO) 0.1 K/uL (0.0-0.4); EOSINOPHILS % (AUTO) 0.4 % (0.0-4.0); HEMATOCRIT 27.6 % (36-48); HEMOGLOBIN 8.9 g/dL (12.0-16.0); LYMPHOCYTES # (AUTO) 2.3 K/uL (1.0-5.5); LYMPHOCYTES % (AUTO) 14.2 % (20.5-51.5); MEAN CORPUSCULAR HEMOGLOBIN 27 pg (27-31); MEAN CORPUSCULAR HGB CONC 32 % (32-36); MEAN CORPUSCULAR VOLUME 85 fL (79.0-98.0); MONOCYTES % (AUTO) 12.4 % (1.7-9.3); NEUTROPHILS # (AUTO) 11.9 K/uL (1.8-7.7); NEUTROPHILS % (AUTO) 72.7 % (40.0-70.0); PLATELET COUNT (AUTO) 180 K/uL (130-430); RED BLOOD CELL COUNT(AUTO) 3.24 MIL/uL (4.2-6.2); WHITE BLOOD COUNT (AUTO) 16.4 K/uL (4.8-10.8)
[2022-08-15 06:49] LABS: ERYTHROCYTE SEDIMENTATION RATE 40 MM/HR (0-20)
[2022-08-15 06:56] LABS: ALBUMIN 2.2 g/dL (3.4-4.8); C-REACTIVE PROTEIN QUANT 33.1 mg/dL (0-0.5); CALCIUM 7.8 mg/dL (8.4-11.0); CREATININE 4.91 mg/dL (0.55-1.30); PHOSPHORUS 3.9 mg/dL (2.7-4.5); TOTAL BILIRUBIN 0.6 mg/dL (0.0-1.0); VANCOMYCIN,RANDOM 12.7 ug/mL
[2022-08-15 07:15] VITALS: BP_SYST 140; BP_SYST 156; PULSE 64; PULSE 72; RESP 18; TEMP 98.6; O2SAT 96
[2022-08-15] MEDS: ASPIRIN 81 MG TAB.CHEW PO SCH (08:08)
[2022-08-15] MEDS: DOCUSATE SODIUM 100 MG CAPSULE PO SCH ×2 (08:08→22:18)
[2022-08-15] MEDS: GABAPENTIN 300 MG CAPSULE PO SCH ×3 (08:08→22:18)
[2022-08-15] MEDS: FLUoxetine HCL 10 MG CAPSULE (PROzac) PO SCH (08:08)
[2022-08-15] MEDS: METOPROLOL SUCCINATE 25 MG TAB.SR.24H (TOPROL XL) PO SCH (08:09)
[2022-08-15] MEDS: FUROSEMIDE 20 MG TABLET PO SCH (08:09)
[2022-08-15] MEDS: MIDODRINE HCL 5 MG TABLET (PROAMATINE) PO SCH ×3 (08:09→22:18)
[2022-08-15] MEDS: amLODIPine BESYLATE 10 MG TABLET PO SCH (08:09)
[2022-08-15 08:10] VITALS: O2SAT 98
[2022-08-15] MEDS: APIXABAN 2.5 MG TABLET PO SCH ×2 (08:11→22:16)
[2022-08-15] MEDS: CEFEPIME 0.5 GM in D5W 50 ML IV SCH (09:10)
[2022-08-15] MEDS: NYSTATIN 15 GM TOPICAL POWDER TP SCH ×2 (09:28→21:00)
[2022-08-15] MEDS ORDERED: VANCOMYCIN HCL 1,000 MG in NS 250 ML IV ONE (11:00)
[2022-08-15] MEDS: INSULIN REGULAR, HUMAN 100 UNITS/ML, 3 ML VIAL (humuLIN R) SUBCUT PRN ×3 (12:04→22:27)
[2022-08-15 12:59] VITALS: BP_SYST 149; PULSE 78; RESP 17; TEMP 98.7; O2SAT 98
[2022-08-15 16:00] VITALS: BP_SYST 148; PULSE 78; RESP 18; TEMP 98.6; O2SAT 97
[2022-08-15] MEDS: traMADol HCL HCL 50 MG TABLET (ULTRAM) PO PRN ×2 (18:49→23:57)
[2022-08-15 20:00] VITALS: BP_SYST 122; PULSE 61; RESP 18; TEMP 97.9; O2SAT 93
[2022-08-15] MEDS: PIPERACILLIN/TAZO 2.25G/DEX-IS 50 ML IV SCH (22:15)
[2022-08-16] MEDS: traMADol HCL HCL 50 MG TABLET (ULTRAM) PO PRN (00:01)
[2022-08-16 00:26] VITALS: BP_SYST 131; PULSE 65; RESP 17; TEMP 97.3; O2SAT 95
[2022-08-16] MEDS: PIPERACILLIN/TAZO 2.25G/DEX-IS 50 ML IV SCH ×3 (05:47→21:59)
[2022-08-16 06:04] LABS: BASOPHILS # (AUTO) 0.1 K/uL (0.0-0.2); BASOPHILS % (AUTO) 0.5 % (0.0-2.0); EOSINOPHILS # (AUTO) 0.2 K/uL (0.0-0.4); EOSINOPHILS % (AUTO) 1.4 % (0.0-4.0); HEMATOCRIT 29.6 % (36-48); HEMOGLOBIN 9.5 g/dL (12.0-16.0); LYMPHOCYTES # (AUTO) 2.4 K/uL (1.0-5.5); LYMPHOCYTES % (AUTO) 20.7 % (20.5-51.5); MEAN CORPUSCULAR HEMOGLOBIN 27 pg (27-31); MEAN CORPUSCULAR HGB CONC 32 % (32-36); MEAN CORPUSCULAR VOLUME 86 fL (79.0-98.0); MONOCYTES # (AUTO) 1.2 K/uL (0.0-1.0); MONOCYTES % (AUTO) 10.4 % (1.7-9.3); NEUTROPHILS # (AUTO) 7.8 K/uL (1.8-7.7); PLATELET COUNT (AUTO) 209 K/uL (130-430); RED BLOOD CELL COUNT(AUTO) 3.45 MIL/uL (4.2-6.2); RED CELL DISTRIBUTION WIDTH 17.9 % (9.0-15.0); WHITE BLOOD COUNT (AUTO) 11.6 K/uL (4.8-10.8)
[2022-08-16 06:30] LABS: ERYTHROCYTE SEDIMENTATION RATE 63 MM/HR (0-20)
[2022-08-16 07:36] LABS: C-REACTIVE PROTEIN QUANT 24.6 mg/dL (0-0.5); CALCIUM 8.2 mg/dL (8.4-11.0); CREATININE 5.43 mg/dL (0.55-1.30); PHOSPHORUS 4.8 mg/dL (2.7-4.5)
[2022-08-16 08:00] VITALS: BP_SYST 151; PULSE 66; RESP 15; TEMP 97.5; O2SAT 98
[2022-08-16] MEDS: ASPIRIN 81 MG TAB.CHEW PO SCH (08:16)
[2022-08-16] MEDS: DOCUSATE SODIUM 100 MG CAPSULE PO SCH ×2 (08:17→22:01)
[2022-08-16] MEDS: FLUoxetine HCL 10 MG CAPSULE (PROzac) PO SCH (08:17)
[2022-08-16] MEDS: GABAPENTIN 300 MG CAPSULE PO SCH ×3 (08:17→22:01)
[2022-08-16] MEDS: METOPROLOL SUCCINATE 25 MG TAB.SR.24H (TOPROL XL) PO SCH (08:18)
[2022-08-16] MEDS: FUROSEMIDE 20 MG TABLET PO SCH (08:18)
[2022-08-16] MEDS: amLODIPine BESYLATE 10 MG TABLET PO SCH (08:19)
[2022-08-16] MEDS: MIDODRINE HCL 5 MG TABLET (PROAMATINE) PO SCH ×3 (08:19→22:02)
[2022-08-16] MEDS: APIXABAN 2.5 MG TABLET PO SCH ×2 (08:20→22:00)
[2022-08-16] MEDS: NYSTATIN 15 GM TOPICAL POWDER TP SCH ×2 (08:28→22:28)
[2022-08-16 09:25] VITALS: O2SAT 96
[2022-08-16 12:58] VITALS: BP_SYST 140; PULSE 77; RESP 16; TEMP 97.6; O2SAT 97
[2022-08-16] MEDS: INSULIN REGULAR, HUMAN 100 UNITS/ML, 3 ML VIAL (humuLIN R) SUBCUT PRN ×2 (16:08→22:26)
[2022-08-16 16:58] VITALS: BP_SYST 145; PULSE 77; RESP 16; TEMP 97.7; O2SAT 97
[2022-08-16 20:00] VITALS: BP_SYST 122; PULSE 61; RESP 18; TEMP 97.9; O2SAT 93; O2SAT 97
[2022-08-17] VITALS (7 sets, daily range): BP systolic 136–156; PULSE 64–86; RESP 18–20; TEMP 97.1–100.5; O2SAT 95–100
[2022-08-17 05:13] LABS: BASOPHILS # (AUTO) 0.1 K/uL (0.0-0.2); BASOPHILS % (AUTO) 0.7 % (0.0-2.0); EOSINOPHILS # (AUTO) 0.2 K/uL (0.0-0.4); EOSINOPHILS % (AUTO) 2.6 % (0.0-4.0); HEMATOCRIT 30.2 % (36-48); HEMOGLOBIN 9.8 g/dL (12.0-16.0); LYMPHOCYTES # (AUTO) 1.9 K/uL (1.0-5.5); LYMPHOCYTES % (AUTO) 20.4 % (20.5-51.5); MEAN CORPUSCULAR HEMOGLOBIN 28 pg (27-31); MEAN CORPUSCULAR HGB CONC 33 % (32-36); MEAN CORPUSCULAR VOLUME 85 fL (79.0-98.0); MONOCYTES # (AUTO) 0.9 K/uL (0.0-1.0); MONOCYTES % (AUTO) 9.5 % (1.7-9.3); NEUTROPHILS # (AUTO) 6.3 K/uL (1.8-7.7); NEUTROPHILS % (AUTO) 66.8 % (40.0-70.0); PLATELET COUNT (AUTO) 256 K/uL (130-430); RED BLOOD CELL COUNT(AUTO) 3.55 MIL/uL (4.2-6.2); RED CELL DISTRIBUTION WIDTH 17.8 % (9.0-15.0); WHITE BLOOD COUNT (AUTO) 9.4 K/uL (4.8-10.8)
[2022-08-17] MEDS: PIPERACILLIN/TAZO 2.25G/DEX-IS 50 ML IV SCH ×3 (06:12→21:00)
[2022-08-17 06:54] LABS: ERYTHROCYTE SEDIMENTATION RATE 66 MM/HR (0-20)
[2022-08-17 07:55] LABS: C-REACTIVE PROTEIN QUANT 11.2 mg/dL (0-0.5); CREATININE 6.14 mg/dL (0.55-1.30); PHOSPHORUS 6.2 mg/dL (2.7-4.5); TOTAL BILIRUBIN 0.3 mg/dL (0.0-1.0); VANCOMYCIN,RANDOM 19.4 ug/mL
[2022-08-17] MEDS: DOCUSATE SODIUM 100 MG CAPSULE PO SCH ×2 (08:23→20:49)
[2022-08-17] MEDS: NYSTATIN 15 GM TOPICAL POWDER TP SCH ×2 (09:47→20:58)
[2022-08-17] MEDS: amLODIPine BESYLATE 10 MG TABLET PO SCH (09:49)
[2022-08-17] MEDS: ASPIRIN 81 MG TAB.CHEW PO SCH (09:50)
[2022-08-17] MEDS: FLUoxetine HCL 10 MG CAPSULE (PROzac) PO SCH (09:50)
[2022-08-17] MEDS: GABAPENTIN 300 MG CAPSULE PO SCH ×3 (09:50→20:47)
[2022-08-17] MEDS: METOPROLOL SUCCINATE 25 MG TAB.SR.24H (TOPROL XL) PO SCH (09:50)
[2022-08-17] MEDS: MIDODRINE HCL 5 MG TABLET (PROAMATINE) PO SCH ×3 (09:51→20:47)
[2022-08-17] MEDS: FUROSEMIDE 20 MG TABLET PO SCH (09:51)
[2022-08-17] MEDS: APIXABAN 2.5 MG TABLET PO SCH ×2 (09:52→20:49)
[2022-08-17] MEDS ORDERED: HEPARIN SODIUM,PORCINE 5,000 UNITS/ML VIAL MC ONE (10:00)
[2022-08-17] MEDS: ACETAMINOPHEN 325 MG TABLET PO PRN (12:04)
[2022-08-17] MEDS: INSULIN REGULAR, HUMAN 100 UNITS/ML, 3 ML VIAL (humuLIN R) SUBCUT PRN ×2 (18:09→20:58)
[2022-08-17] MEDS: EPOETIN ALFA-EPBX 10,000 UNITS/ML VIAL SUBCUT SCH (18:12)
[2022-08-17 21:17] LABS: BASOPHILS # (AUTO) 0.1 K/uL (0.0-0.2); BASOPHILS % (AUTO) 0.5 % (0.0-2.0); EOSINOPHILS % (AUTO) 0.1 % (0.0-4.0); HEMATOCRIT 31.1 % (36-48); HEMOGLOBIN 9.9 g/dL (12.0-16.0); LYMPHOCYTES % (AUTO) 4.5 % (20.5-51.5); MEAN CORPUSCULAR HEMOGLOBIN 27 pg (27-31); MEAN CORPUSCULAR HGB CONC 32 % (32-36); MEAN CORPUSCULAR VOLUME 86 fL (79.0-98.0); MONOCYTES # (AUTO) 0.9 K/uL (0.0-1.0); MONOCYTES % (AUTO) 4.1 % (1.7-9.3); NEUTROPHILS # (AUTO) 19.8 K/uL (1.8-7.7); NEUTROPHILS % (AUTO) 90.8 % (40.0-70.0); PLATELET COUNT (AUTO) 221 K/uL (130-430); RED BLOOD CELL COUNT(AUTO) 3.62 MIL/uL (4.2-6.2); RED CELL DISTRIBUTION WIDTH 17.7 % (9.0-15.0)
[2022-08-17 21:18] LABS: WHITE BLOOD COUNT (AUTO) 21.9 K/uL (4.8-10.8)
[2022-08-18 01:00] VITALS: BP_SYST 142; PULSE 68; RESP 17; TEMP 98; O2SAT 97
[2022-08-18] MEDS: PIPERACILLIN/TAZO 2.25G/DEX-IS 50 ML IV SCH ×3 (06:55→21:17)
[2022-08-18 08:00] VITALS: BP_SYST 136; PULSE 68; RESP 16; TEMP 96.7; O2SAT 96
[2022-08-18] MEDS: DOCUSATE SODIUM 100 MG CAPSULE PO SCH ×2 (08:38→20:30)
[2022-08-18] MEDS: GABAPENTIN 300 MG CAPSULE PO SCH ×3 (08:41→20:18)
[2022-08-18] MEDS: FLUoxetine HCL 10 MG CAPSULE (PROzac) PO SCH (08:41)
[2022-08-18] MEDS: FUROSEMIDE 20 MG TABLET PO SCH (08:41)
[2022-08-18] MEDS: MIDODRINE HCL 5 MG TABLET (PROAMATINE) PO SCH ×3 (08:41→20:18)
[2022-08-18] MEDS: METOPROLOL SUCCINATE 25 MG TAB.SR.24H (TOPROL XL) PO SCH (08:42)
[2022-08-18] MEDS: ASPIRIN 81 MG TAB.CHEW PO SCH (08:42)
[2022-08-18] MEDS: amLODIPine BESYLATE 10 MG TABLET PO SCH (08:42)
[2022-08-18] MEDS: NYSTATIN 15 GM TOPICAL POWDER TP SCH ×2 (08:43→20:20)
[2022-08-18] MEDS: APIXABAN 2.5 MG TABLET PO SCH ×2 (08:45→20:19)
[2022-08-18 10:27] VITALS: O2SAT 96
[2022-08-18 11:48] LABS: ALBUMIN 1.8 g/dL (3.4-4.8); C-REACTIVE PROTEIN QUANT 12.7 mg/dL (0-0.5); CALCIUM 8.1 mg/dL (8.4-11.0); CREATININE 4.67 mg/dL (0.55-1.30); TOTAL BILIRUBIN 0.4 mg/dL (0.0-1.0)
[2022-08-18 12:00] VITALS: BP_SYST 139; PULSE 72; RESP 17; TEMP 97.6; O2SAT 97
[2022-08-18] MEDS: LOPERAMIDE HCL 2 MG CAPSULE PO PRN (14:09)
[2022-08-18 16:00] VITALS: BP_SYST 137; PULSE 70; RESP 18; TEMP 97.1; O2SAT 96
[2022-08-18 16:45] LABS: BASOPHILS # (AUTO) 0.1 K/uL (0.0-0.2); BASOPHILS % (AUTO) 0.6 % (0.0-2.0); EOSINOPHILS # (AUTO) 0.1 K/uL (0.0-0.4); EOSINOPHILS % (AUTO) 1.1 % (0.0-4.0); HEMATOCRIT 29.8 % (36-48); HEMOGLOBIN 9.5 g/dL (12.0-16.0); LYMPHOCYTES # (AUTO) 1.8 K/uL (1.0-5.5); LYMPHOCYTES % (AUTO) 15.3 % (20.5-51.5); MEAN CORPUSCULAR HEMOGLOBIN 28 pg (27-31); MEAN CORPUSCULAR HGB CONC 32 % (32-36); MEAN CORPUSCULAR VOLUME 87 fL (79.0-98.0); MONOCYTES # (AUTO) 0.8 K/uL (0.0-1.0); MONOCYTES % (AUTO) 6.5 % (1.7-9.3); NEUTROPHILS # (AUTO) 8.9 K/uL (1.8-7.7); NEUTROPHILS % (AUTO) 76.5 % (40.0-70.0); PLATELET COUNT (AUTO) 248 K/uL (130-430); RED BLOOD CELL COUNT(AUTO) 3.44 MIL/uL (4.2-6.2); WHITE BLOOD COUNT (AUTO) 11.6 K/uL (4.8-10.8)
[2022-08-18 16:51] LABS: ERYTHROCYTE SEDIMENTATION RATE 66 MM/HR (0-20)
[2022-08-18 20:00] VITALS: BP_SYST 129; PULSE 63; RESP 18; TEMP 97.2; O2SAT 100
[2022-08-18] MEDS: INSULIN REGULAR, HUMAN 100 UNITS/ML, 3 ML VIAL (humuLIN R) SUBCUT PRN (20:27)
[2022-08-19 01:45] VITALS: BP_SYST 161; PULSE 64; RESP 17; TEMP 97.6; O2SAT 95
[2022-08-19 02:22] VITALS: BP_SYST 153
[2022-08-19 05:05] LABS: BASOPHILS # (AUTO) 0.1 K/uL (0.0-0.2); BASOPHILS % (AUTO) 0.8 % (0.0-2.0); EOSINOPHILS # (AUTO) 0.1 K/uL (0.0-0.4); EOSINOPHILS % (AUTO) 1.4 % (0.0-4.0); HEMATOCRIT 30.8 % (36-48); LYMPHOCYTES # (AUTO) 1.9 K/uL (1.0-5.5); LYMPHOCYTES % (AUTO) 18.1 % (20.5-51.5); MEAN CORPUSCULAR HEMOGLOBIN 28 pg (27-31); MEAN CORPUSCULAR HGB CONC 32 % (32-36); MEAN CORPUSCULAR VOLUME 86 fL (79.0-98.0); MONOCYTES # (AUTO) 0.7 K/uL (0.0-1.0); MONOCYTES % (AUTO) 7.1 % (1.7-9.3); NEUTROPHILS # (AUTO) 7.4 K/uL (1.8-7.7); NEUTROPHILS % (AUTO) 72.6 % (40.0-70.0); PLATELET COUNT (AUTO) 273 K/uL (130-430); RED BLOOD CELL COUNT(AUTO) 3.59 MIL/uL (4.2-6.2); RED CELL DISTRIBUTION WIDTH 17.9 % (9.0-15.0); WHITE BLOOD COUNT (AUTO) 10.2 K/uL (4.8-10.8)
[2022-08-19 05:48] LABS: C-REACTIVE PROTEIN QUANT 9.8 mg/dL (0-0.5); CALCIUM 8.3 mg/dL (8.4-11.0); CREATININE 5.04 mg/dL (0.55-1.30); PHOSPHORUS 5.5 mg/dL (2.7-4.5); VANCOMYCIN,RANDOM 14.7 ug/mL
[2022-08-19] MEDS: PIPERACILLIN/TAZO 2.25G/DEX-IS 50 ML IV SCH ×2 (06:17→14:03)
[2022-08-19 06:57] LABS: ERYTHROCYTE SEDIMENTATION RATE 73 MM/HR (0-20)
[2022-08-19 08:00] VITALS: BP_SYST 137; PULSE 69; RESP 18; TEMP 96.5; O2SAT 98
[2022-08-19] MEDS: DOCUSATE SODIUM 100 MG CAPSULE PO SCH (09:00)
[2022-08-19] MEDS: ASPIRIN 81 MG TAB.CHEW PO SCH (09:49)
[2022-08-19] MEDS: NYSTATIN 15 GM TOPICAL POWDER TP SCH (09:49)
[2022-08-19] MEDS: METOPROLOL SUCCINATE 25 MG TAB.SR.24H (TOPROL XL) PO SCH (09:50)
[2022-08-19] MEDS: APIXABAN 2.5 MG TABLET PO SCH (09:52)
[2022-08-19] MEDS: MIDODRINE HCL 5 MG TABLET (PROAMATINE) PO SCH ×2 (09:53→14:04)
[2022-08-19] MEDS: FUROSEMIDE 20 MG TABLET PO SCH (09:53)
[2022-08-19] MEDS: FLUoxetine HCL 10 MG CAPSULE (PROzac) PO SCH (09:54)
[2022-08-19] MEDS: amLODIPine BESYLATE 10 MG TABLET PO SCH (09:54)
[2022-08-19] MEDS: GABAPENTIN 300 MG CAPSULE PO SCH ×2 (09:54→14:03)
[2022-08-19] MEDS: LOPERAMIDE HCL 2 MG CAPSULE PO PRN (10:01)
[2022-08-19] MEDS ORDERED: VANCOMYCIN HCL 1,000 MG in NS 250 ML IV ONE (11:00)
[2022-08-19] MEDS ORDERED: HEPARIN SODIUM,PORCINE 5,000 UNITS/ML VIAL MC ONE (12:00)
[2022-08-19 12:57] VITALS: BP_SYST 142; PULSE 66; RESP 17; TEMP 97.2; O2SAT 97
[2022-08-19 15:00] VITALS: TEMP 101.4
[2022-08-19] MEDS: ACETAMINOPHEN 325 MG TABLET PO PRN (15:00)
[2022-08-19 16:26] VITALS: BP_SYST 139; PULSE 68; RESP 18; TEMP 101.4; O2SAT 98
[2022-08-19] MEDS ORDERED: EPOETIN ALFA-EPBX 3,000 UNITS/ML VIAL SUBCUT SCH (17:00)
[2022-08-20] MEDS ORDERED: APIXABAN 2.5 MG TABLET PO SCH (09:00)
[2022-08-20 18:08] VITALS: BP_SYST 149; PULSE 82; RESP 18; TEMP 97.9; O2SAT 94
== END 2022-08-19 16:15 | disposition left against medical advice (07) | DRG 133 ==
LOC: SED 20:16 → STU 08-05 00:38 → SMU 08-14 14:28
PROVIDERS: ADMIT Preventive Medicine Preventive Medicine/Occupational Environmental Medicine; ATTEND Preventive Medicine Preventive Medicine/Occupational Environmental Medicine
PROC: 5A1D70Z Performance of Urinary Filtration, Intermittent, Less than 6 Hours Per Day (ICD-10-PCS; 2022-08-05)
PROC: 5A1D70Z Performance of Urinary Filtration, Intermittent, Less than 6 Hours Per Day (ICD-10-PCS; 2022-08-10)
PROC: 5A1D70Z Performance of Urinary Filtration, Intermittent, Less than 6 Hours Per Day (ICD-10-PCS; 2022-08-12)
PROC: 30233N1 Transfusion of Nonautologous Red Blood Cells into Peripheral Vein, Percutaneous Approach (ICD-10-PCS; principal; 2022-08-14)
PROC: 5A1D70Z Performance of Urinary Filtration, Intermittent, Less than 6 Hours Per Day (ICD-10-PCS; 2022-08-14)
PROC: 5A1D70Z Performance of Urinary Filtration, Intermittent, Less than 6 Hours Per Day (ICD-10-PCS; 2022-08-17)
PROC: 5A1D70Z Performance of Urinary Filtration, Intermittent, Less than 6 Hours Per Day (ICD-10-PCS; 2022-08-19)
DX: J96.01 Acute respiratory failure with hypoxia (principal); A41.52 Sepsis due to Pseudomonas; I21.A1 Myocardial infarction type 2; I82.402 Acute embolism and thrombosis of unspecified deep veins of left lower extremity; G92.9 Unspecified toxic encephalopathy; N17.9 Acute kidney failure, unspecified; D63.1 Anemia in chronic kidney disease; E83.41 Hypermagnesemia; E83.39 Other disorders of phosphorus metabolism; E11.649 Type 2 diabetes mellitus with hypoglycemia without coma; I12.0 Hypertensive chronic kidney disease with stage 5 chronic kidney disease or end stage renal disease; N18.6 End stage renal disease; E83.51 Hypocalcemia; E11.40 Type 2 diabetes mellitus with diabetic neuropathy, unspecified; I25.10 Atherosclerotic heart disease of native coronary artery without angina pectoris; E88.09 Other disorders of plasma-protein metabolism, not elsewhere classified; E87.1 Hypo-osmolality and hyponatremia; E11.69 Type 2 diabetes mellitus with other specified complication; E11.51 Type 2 diabetes mellitus with diabetic peripheral angiopathy without gangrene; E11.65 Type 2 diabetes mellitus with hyperglycemia; E83.42 Hypomagnesemia; J44.9 Chronic obstructive pulmonary disease, unspecified; R53.81 Other malaise; E11.22 Type 2 diabetes mellitus with diabetic chronic kidney disease; E66.9 Obesity, unspecified; M86.9 Osteomyelitis, unspecified; Z99.2 Dependence on renal dialysis; Z89.611 Acquired absence of right leg above knee; Z89.511 Acquired absence of right leg below knee; Z85.42 Personal history of malignant neoplasm of other parts of uterus; Z79.01 Long term (current) use of anticoagulants; Z79.4 Long term (current) use of insulin; Z79.82 Long term (current) use of aspirin; Z68.37 Body mass index [BMI] 37.0-37.9, adult
CPT/HCPCS: 36415; 36600; 70450-TC; 71045; 73552; 76376; 80048; 80053; 80202; 81000; 82140; 82272; 82607; 82728; 82746; 82803; 83605; 83735; 83880; 84100; 84484; 85025; 85044; 85610-TC; 85651-TC; 85730-TC; 86140; 86704; 86706; 86803; 86886; 86900; 86901; 86920; 87040; 87045-TC; 87046; 87081; 87086; 87230-TC; 87340; 87536; 89055; 90935; 90937; 93005; 93971; 97110-GP; 97116-GP; 97530-GP; 99285; G0378; J0692; J1644; J2405; J2543; J3370; J7050; J7060; P9021; Q5106

== ENCOUNTER 2022-12-19 00:23 | Inpatient (IN) | payer MEDICAID, OTHER ==
[~2022-12-19] VITALS: Ht 167.6 cm; Wt 114.8 kg
[~2022-12-19 00:23] MED LIST changes: +APIX2.5T PO; +APIX5TAB4 PO; -ASPI-1155 PO; +DOCU-144 PO; -INSU100V SQ; +METO-540 PO; +SSNOVOLOG SUBCUT; +TRAM50TA2 PO
[2022-12-19 01:11] VITALS: BP_SYST 161; PULSE 94; RESP 16; TEMP 97.8; O2SAT 100
[2022-12-19] MEDS ORDERED: MORPHINE 4 MG INJ. 4 MG/ML VIAL IM ONE (01:45)
[2022-12-19] MEDS ORDERED: DIPHENHYDRAMINE INJ 50 MG/ML VIAL IVP ONE ×2 (02:30→05:00)
[2022-12-19 03:23] LABS: ANION GAP 13 (5-15); CALCIUM 7.4 mg/dL (8.4-11.0); CARBON DIOXIDE 20 mmol/L (23-29); CHLORIDE 106 mmol/L (98-107); CREATININE 6.92 mg/dL (0.55-1.30); GFR AFRICAN AMERICAN 8 mL/min (>90); GLUCOSE 121 mg/dL (74-106); POTASSIUM 4.7 mmol/L (3.5-5.1); SODIUM SERUM 139 mmol/L (136-145); UREA NITROGEN, BLOOD 61 mg/dL (8-21)
[2022-12-19 03:27] LABS: GFR NON AFRICAN-AMERICAN 6 mL/min (>90)
[2022-12-19 03:42] LABS: ALANINE AMINOTRANSFERASE 9 U/L (12-78); ALBUMIN 3.1 g/dL (3.4-4.8); ASPARTATE AMINOTRANSFERASE 11 U/L (10-37); TOTAL BILIRUBIN 0.6 mg/dL (0.0-1.0)
[2022-12-19 03:56] LABS: BASOPHILS # (AUTO) 0.1 K/uL (0.0-0.2); BASOPHILS % (AUTO) 0.9 % (0.0-2.0); EOSINOPHILS # (AUTO) 0.4 K/uL (0.0-0.4); EOSINOPHILS % (AUTO) 5.3 % (0.0-4.0); HEMATOCRIT 30.9 % (36-48); HEMOGLOBIN 9.4 g/dL (12.0-16.0); LYMPHOCYTES # (AUTO) 1.3 K/uL (1.0-5.5); LYMPHOCYTES % (AUTO) 17.2 % (20.5-51.5); MEAN CORPUSCULAR HEMOGLOBIN 27 pg (27-31); MEAN CORPUSCULAR HGB CONC 30 % (32-36); MEAN CORPUSCULAR VOLUME 90 fL (79.0-98.0); MONOCYTES # (AUTO) 0.5 K/uL (0.0-1.0); MONOCYTES % (AUTO) 6.4 % (1.7-9.3); NEUTROPHILS # (AUTO) 5.2 K/uL (1.8-7.7); NEUTROPHILS % (AUTO) 70.2 % (40.0-70.0); PLATELET COUNT (AUTO) 261 K/uL (130-430); RED BLOOD CELL COUNT(AUTO) 3.41 MIL/uL (4.2-6.2); RED CELL DISTRIBUTION WIDTH 20.2 % (9.0-15.0); WHITE BLOOD COUNT (AUTO) 7.4 K/uL (4.8-10.8)
[2022-12-19] MEDS ORDERED: ATOR40TA68 PO (05:06)
[2022-12-19] MEDS ORDERED: ACETAMINOPHEN 325 MG TABLET PO PRN ×2 (05:30→06:45)
[2022-12-19] MEDS ORDERED: LORazepam 2 MG/ML VIAL IVP PRN (05:30)
[2022-12-19] MEDS ORDERED: INSULIN REGULAR, HUMAN 100 UNITS/ML, 3 ML VIAL (humuLIN R) SUBCUT PRN (05:30)
[2022-12-19] MEDS ORDERED: traMADol HCL HCL 50 MG TABLET (ULTRAM) PO PRN ×2 (05:30)
[2022-12-19] MEDS ORDERED: ONDANSETRON HCL 4 MG/2 ML VIAL IVP PRN (05:30)
[2022-12-19] MEDS ORDERED: GLUCOSE (DEXTROSE) ORAL GEL -Adults PO PRN (06:45)
[2022-12-19] MEDS ORDERED: D5W 1,000 ML IV PRN (06:45)
[2022-12-19] MEDS ORDERED: DEXTROSE 50%-WATER 50 ML DISP.SYRIN IVP PRN (06:45)
[2022-12-19] MEDS: NORMAL SALINE 5 ML DISP.SYRIN IVF SCH ×3 (06:48→21:28)
[2022-12-19] MEDS: DOCUSATE SODIUM 100 MG CAPSULE PO SCH ×2 (09:00→21:21)
[2022-12-19] MEDS: FUROSEMIDE 20 MG TABLET PO SCH (09:01)
[2022-12-19] MEDS: METOPROLOL SUCCINATE 25 MG TAB.SR.24H (TOPROL XL) PO SCH (09:02)
[2022-12-19] MEDS: GABAPENTIN 300 MG CAPSULE PO SCH ×3 (09:03→21:22)
[2022-12-19] MEDS: amLODIPine BESYLATE 10 MG TABLET PO SCH (09:03)
[2022-12-19] MEDS: ATORVASTATIN 20 MG TABLET PO SCH (09:04)
[2022-12-19] MEDS: APIXABAN 2.5 MG TABLET PO SCH ×2 (09:05→21:24)
[2022-12-19] MEDS: FLUoxetine HCL 10 MG CAPSULE (PROzac) PO SCH (09:09)
[2022-12-19] MEDS ORDERED: MORPHINE 4 MG INJ. 4 MG/ML VIAL IVP PRN (18:00)
[2022-12-19 21:36] VITALS: BP_SYST 105; PULSE 61; RESP 18; TEMP 97.7; O2SAT 98
[2022-12-19] MEDS ORDERED: *HEPARIN PER PHARMACY XX ONE (22:30)
[2022-12-20 00:12] VITALS: BP_SYST 105; PULSE 61; RESP 16; TEMP 98; O2SAT 96
[2022-12-20 00:32] LABS: INR 1.1 (0.8-1.2); PROTHROMBIN TIME 11.7 SECS (9.5-12.5)
[2022-12-20] MEDS: HEPARIN 25,000 UNITS/D5W 250ML 250 ML IV PRN ×3 (01:37→18:06)
[2022-12-20] MEDS ORDERED: HEPARIN SODIUM,PORCINE 2000 UNITS/0.4 ML BOLUS IVP PRN (06:30)
[2022-12-20 06:31] LABS: BASOPHILS # (AUTO) 0.1 K/uL (0.0-0.2); BASOPHILS % (AUTO) 1.1 % (0.0-2.0); EOSINOPHILS # (AUTO) 0.5 K/uL (0.0-0.4); EOSINOPHILS % (AUTO) 7.4 % (0.0-4.0); HEMATOCRIT 28.3 % (36-48); HEMOGLOBIN 8.6 g/dL (12.0-16.0); LYMPHOCYTES # (AUTO) 1.9 K/uL (1.0-5.5); LYMPHOCYTES % (AUTO) 27.1 % (20.5-51.5); MEAN CORPUSCULAR HEMOGLOBIN 28 pg (27-31); MEAN CORPUSCULAR HGB CONC 30 % (32-36); MEAN CORPUSCULAR VOLUME 93 fL (79.0-98.0); MONOCYTES # (AUTO) 0.6 K/uL (0.0-1.0); MONOCYTES % (AUTO) 8.8 % (1.7-9.3); NEUTROPHILS # (AUTO) 3.9 K/uL (1.8-7.7); NEUTROPHILS % (AUTO) 55.6 % (40.0-70.0); PLATELET COUNT (AUTO) 257 K/uL (130-430); RED BLOOD CELL COUNT(AUTO) 3.05 MIL/uL (4.2-6.2); RED CELL DISTRIBUTION WIDTH 19.8 % (9.0-15.0)
[2022-12-20 06:33] LABS: CALCIUM 7.2 mg/dL (8.4-11.0); CREATININE 7.31 mg/dL (0.55-1.30); POTASSIUM 5.3 mmol/L (3.5-5.1)
[2022-12-20] MEDS: NORMAL SALINE 5 ML DISP.SYRIN IVF SCH ×3 (06:49→21:15)
[2022-12-20 06:53] LABS: PHOSPHORUS 8.6 mg/dL (2.7-4.5)
[2022-12-20 08:00] VITALS: BP_SYST 110; PULSE 61; RESP 16; TEMP 97.5; O2SAT 98
[2022-12-20] MEDS: GABAPENTIN 300 MG CAPSULE PO SCH ×3 (08:43→21:13)
[2022-12-20] MEDS: amLODIPine BESYLATE 10 MG TABLET PO SCH (08:43)
[2022-12-20] MEDS: FLUoxetine HCL 10 MG CAPSULE (PROzac) PO SCH (08:43)
[2022-12-20] MEDS: ATORVASTATIN 20 MG TABLET PO SCH (08:44)
[2022-12-20] MEDS: METOPROLOL SUCCINATE 25 MG TAB.SR.24H (TOPROL XL) PO SCH (08:44)
[2022-12-20] MEDS: MORPHINE 2 MG/ML INJ. SYRINGE IVP PRN ×3 (08:46→23:11)
[2022-12-20] MEDS: FUROSEMIDE 20 MG TABLET PO SCH (08:47)
[2022-12-20] MEDS: DOCUSATE SODIUM 100 MG CAPSULE PO SCH ×3 (09:00→21:15)
[2022-12-20] MEDS ORDERED: SODIUM ZIRCONIUM CYCLOSILICATE 10 GM POWD.PACK PO ONE (11:00)
[2022-12-20 12:00] VITALS: BP_SYST 93; PULSE 61; RESP 18; TEMP 96.5
[2022-12-20 16:00] VITALS: BP_SYST 98; PULSE 62; RESP 18; TEMP 97; O2SAT 97
[2022-12-20] MEDS: EPOETIN ALFA 20,000 UNITS/ML VIAL SUBCUT SCH (17:24)
[2022-12-20] MEDS ORDERED: DIPHENHYDRAMINE HCL 12.5 MG/5 ML UDC PO PRN (17:45)
[2022-12-20] MEDS: HEPARIN SODIUM,PORCINE 3000 UNITS/0.6 ML BOLUS IVP PRN (18:02)
[2022-12-20 20:00] VITALS: BP_SYST 105; RESP 20; TEMP 98.9; O2SAT 98
[2022-12-21] VITALS (7 sets, daily range): BP systolic 90–112; PULSE 53–64; RESP 18–20; TEMP 97.5–98.4; O2SAT 93–100
[2022-12-21] MEDS: D5/0.45 NS 1,000 ML IV SCH (00:44)
[2022-12-21] MEDS: MORPHINE 2 MG/ML INJ. SYRINGE IVP PRN ×2 (05:12→10:06)
[2022-12-21] MEDS: NORMAL SALINE 5 ML DISP.SYRIN IVF SCH ×3 (05:13→22:00)
[2022-12-21 05:47] LABS: BASOPHILS # (AUTO) 0.1 K/uL (0.0-0.2); BASOPHILS % (AUTO) 1.3 % (0.0-2.0); EOSINOPHILS # (AUTO) 0.5 K/uL (0.0-0.4); EOSINOPHILS % (AUTO) 7.5 % (0.0-4.0); HEMATOCRIT 30.7 % (36-48); HEMOGLOBIN 9.1 g/dL (12.0-16.0); LYMPHOCYTES # (AUTO) 2.4 K/uL (1.0-5.5); LYMPHOCYTES % (AUTO) 35.1 % (20.5-51.5); MEAN CORPUSCULAR HEMOGLOBIN 28 pg (27-31); MEAN CORPUSCULAR HGB CONC 30 % (32-36); MEAN CORPUSCULAR VOLUME 93 fL (79.0-98.0); MONOCYTES # (AUTO) 0.6 K/uL (0.0-1.0); MONOCYTES % (AUTO) 8.9 % (1.7-9.3); NEUTROPHILS # (AUTO) 3.2 K/uL (1.8-7.7); NEUTROPHILS % (AUTO) 47.2 % (40.0-70.0); PLATELET COUNT (AUTO) 233 K/uL (130-430); RED BLOOD CELL COUNT(AUTO) 3.31 MIL/uL (4.2-6.2); RED CELL DISTRIBUTION WIDTH 19.8 % (9.0-15.0); WHITE BLOOD COUNT (AUTO) 6.8 K/uL (4.8-10.8)
[2022-12-21 06:32] LABS: POTASSIUM 5.1 mmol/L (3.5-5.1)
[2022-12-21 06:33] LABS: ALBUMIN 2.7 g/dL (3.4-4.8); PHOSPHORUS 9.4 mg/dL (2.7-4.5); TOTAL BILIRUBIN 0.4 mg/dL (0.0-1.0); TOTAL PROTEIN, SERUM 6.1 g/dL (6.4-8.3)
[2022-12-21 06:42] LABS: CALCIUM 6.5 mg/dL (8.4-11.0); CREATININE 8.29 mg/dL (0.55-1.30)
[2022-12-21] MEDS: FLUoxetine HCL 10 MG CAPSULE (PROzac) PO SCH (09:00)
[2022-12-21] MEDS: amLODIPine BESYLATE 10 MG TABLET PO SCH (09:00)
[2022-12-21] MEDS: ATORVASTATIN 20 MG TABLET PO SCH (09:00)
[2022-12-21] MEDS: GABAPENTIN 300 MG CAPSULE PO SCH ×3 (09:00→23:30)
[2022-12-21] MEDS: METOPROLOL SUCCINATE 25 MG TAB.SR.24H (TOPROL XL) PO SCH (09:00)
[2022-12-21] MEDS: FUROSEMIDE 20 MG TABLET PO SCH (09:00)
[2022-12-21] MEDS: DOCUSATE SODIUM 100 MG CAPSULE PO SCH ×2 (09:00→23:30)
[2022-12-21] MEDS ORDERED: CALCIUM GLUCONATE 2 GM in NS 100 ML IV ONE (10:00)
[2022-12-21] MEDS ORDERED: HEPARIN SODIUM, PORCINE 10,000 UNITS/ 10 ML VIAL ONE (19:28)
[2022-12-21] MEDS ORDERED: NS 100 ML BAG ONE (19:28)
[2022-12-21] MEDS ORDERED: ONDANSETRON HCL 4 MG/2 ML VIAL ONE (19:28)
[2022-12-21] MEDS ORDERED: SEVOFLURANE 15 MIN GAS INH ONE (19:28)
[2022-12-21] MEDS ORDERED: NS IRRIG SOLN 1000 ML IR ONE (19:28)
[2022-12-21] MEDS ORDERED: ePHEDrine sulfate 50 MG/ML VIAL ONE (19:28)
[2022-12-21] MEDS ORDERED: MIDAZOLAM HCL/PF 2 MG/2 ML SYRINGE ONE (19:28)
[2022-12-21] MEDS ORDERED: ETOMIDATE 20 MG/ 10 ML VIAL (AMIDATE) ONE (19:28)
[2022-12-21] MEDS ORDERED: ONDANSETRON HCL 4 MG/2 ML VIAL IVP PRN (20:15)
[2022-12-21] MEDS ORDERED: HYDROmorphone 2 MG/ML VIAL IVP PRN (20:15)
[2022-12-21] MEDS ORDERED: HYDROmorphone 1 MG/ML INJ. CARTRIDGE IVP PRN (20:15)
[2022-12-21] MEDS ORDERED: NACL 0.9% 1,000 ML IV SCH (20:15)
[2022-12-22] VITALS (36 sets, daily range): BP systolic 78–148; PULSE 64–102; RESP 14–25; TEMP 96.8–98.4; O2SAT 94–100
[2022-12-22] MEDS: D5/0.45 NS 1,000 ML IV SCH ×2 (01:18→15:00)
[2022-12-22 02:42] LABS: BASOPHILS # (AUTO) 0.1 K/uL (0.0-0.2); BASOPHILS % (AUTO) 1.6 % (0.0-2.0); EOSINOPHILS # (AUTO) 0.2 K/uL (0.0-0.4); EOSINOPHILS % (AUTO) 2.3 % (0.0-4.0); HEMOGLOBIN 9.3 g/dL (12.0-16.0); LYMPHOCYTES # (AUTO) 2.2 K/uL (1.0-5.5); MEAN CORPUSCULAR HEMOGLOBIN 29 pg (27-31); MEAN CORPUSCULAR HGB CONC 31 % (32-36); MEAN CORPUSCULAR VOLUME 92 fL (79.0-98.0); MONOCYTES # (AUTO) 0.4 K/uL (0.0-1.0); MONOCYTES % (AUTO) 4.4 % (1.7-9.3); NEUTROPHILS # (AUTO) 6.2 K/uL (1.8-7.7); NEUTROPHILS % (AUTO) 67.7 % (40.0-70.0); PLATELET COUNT (AUTO) 281 K/uL (130-430); RED BLOOD CELL COUNT(AUTO) 3.25 MIL/uL (4.2-6.2); WHITE BLOOD COUNT (AUTO) 9.1 K/uL (4.8-10.8)
[2022-12-22 03:02] LABS: ALBUMIN 2.8 g/dL (3.4-4.8); CALCIUM 7.8 mg/dL (8.4-11.0); POTASSIUM 4.7 mmol/L (3.5-5.1); TOTAL BILIRUBIN 0.6 mg/dL (0.0-1.0); TOTAL PROTEIN, SERUM 6.4 g/dL (6.4-8.3)
[2022-12-22 03:19] LABS: BLOOD GAS PH 7.191 (7.350-7.450)
[2022-12-22 03:20] LABS: ABG O2 SAT% ESTIMATE 99.3 % (94.0-100.0); BLOOD GAS BASE EXCESS -12.4 mmol/L (-3.0-3.0); BLOOD GAS HCO3 15.2 mmol/L (21.0-27.0); BLOOD GAS PCO2 40.6 mmHg (35.0-45.0); BLOOD GAS PO2 222.5 mmHg (75.0-100.0)
[2022-12-22 03:23] LABS: CREATININE 8.71 mg/dL (0.55-1.30)
[2022-12-22] MEDS ORDERED: PROPOFOL DRIP 100 ML IV PRN ×2 (03:45)
[2022-12-22 04:24] LABS: INR 1.8 (0.8-1.2)
[2022-12-22] MEDS ORDERED: NOREPINEPHRINE BITARTRATE 4 MG in NS 246 ML IV PRN (04:45)
[2022-12-22] MEDS ORDERED: HEPARIN 25,000 UNITS/D5W 250ML 250 ML IV PRN (04:45)
[2022-12-22] MEDS ORDERED: SODIUM BICARBONATE 8.4% JECT 50 MEQ/50 ML SYRINGE IVP ONE (05:30)
[2022-12-22] MEDS ORDERED: SODIUM BICARBONATE 8.4% JECT 50 MEQ/50 ML SYRINGE ONE (05:43)
[2022-12-22] MEDS: HEPARIN SODIUM,PORCINE 3000 UNITS/0.6 ML BOLUS IVP PRN ×2 (06:09→13:41)
[2022-12-22] MEDS: HEPARIN 25,000 UNITS/D5W 250ML 250 ML IV PRN ×3 (06:10→22:39)
[2022-12-22] MEDS: NORMAL SALINE 5 ML DISP.SYRIN IVF SCH ×3 (06:17→21:02)
[2022-12-22] MEDS: MIDAZOLAM IN NACL,ISO-OSMOT/PF 100 ML IV PRN (07:06)
[2022-12-22] MEDS: FENTANYL CITRATE-0.9 % NACL/PF 100 ML IV PRN (07:11)
[2022-12-22] MEDS: ATORVASTATIN 20 MG TABLET PO SCH (09:15)
[2022-12-22] MEDS: DOCUSATE SODIUM 100 MG CAPSULE PO SCH ×2 (09:15→20:43)
[2022-12-22] MEDS: amLODIPine BESYLATE 10 MG TABLET PO SCH (09:15)
[2022-12-22] MEDS: GABAPENTIN 300 MG CAPSULE PO SCH ×3 (09:15→20:42)
[2022-12-22] MEDS: FLUoxetine HCL 10 MG CAPSULE (PROzac) PO SCH (09:15)
[2022-12-22] MEDS: FUROSEMIDE 20 MG TABLET PO SCH (09:16)
[2022-12-22] MEDS: METOPROLOL SUCCINATE 25 MG TAB.SR.24H (TOPROL XL) PO SCH (09:18)
[2022-12-22] MEDS ORDERED: NOREPINEPHRINE 4 MG/4 ML VIAL IV ONE (14:01)
[2022-12-22] MEDS ORDERED: NOREPINEPHRINE BITARTRATE 8 MG in NS 242 ML IV PRN (14:15)
[2022-12-22] MEDS: EPOETIN ALFA 20,000 UNITS/ML VIAL SUBCUT SCH (17:44)
[2022-12-23] VITALS (34 sets, daily range): BP systolic 88–133; PULSE 61–76; RESP 18–21; TEMP 96.8–100.3; O2SAT 94–100
[2022-12-23] MEDS ORDERED: HEPARIN SODIUM,PORCINE 5,000 UNITS/ML VIAL ONE (00:15)
[2022-12-23] MEDS ORDERED: HEPARIN SODIUM,PORCINE 5,000 UNITS/ML VIAL SUBCUT ONE (01:00)
[2022-12-23] MEDS: FENTANYL CITRATE-0.9 % NACL/PF 100 ML IV PRN (03:59)
[2022-12-23 05:13] LABS: BASOPHILS # (AUTO) 0.1 K/uL (0.0-0.2); BASOPHILS % (AUTO) 0.7 % (0.0-2.0); EOSINOPHILS # (AUTO) 0.1 K/uL (0.0-0.4); EOSINOPHILS % (AUTO) 0.7 % (0.0-4.0); HEMATOCRIT 28.8 % (36-48); LYMPHOCYTES # (AUTO) 1.3 K/uL (1.0-5.5); LYMPHOCYTES % (AUTO) 11.7 % (20.5-51.5); MEAN CORPUSCULAR HEMOGLOBIN 28 pg (27-31); MEAN CORPUSCULAR HGB CONC 31 % (32-36); MEAN CORPUSCULAR VOLUME 90 fL (79.0-98.0); MONOCYTES % (AUTO) 9.7 % (1.7-9.3); NEUTROPHILS # (AUTO) 8.4 K/uL (1.8-7.7); NEUTROPHILS % (AUTO) 77.2 % (40.0-70.0); PLATELET COUNT (AUTO) 313 K/uL (130-430); RED BLOOD CELL COUNT(AUTO) 3.21 MIL/uL (4.2-6.2); RED CELL DISTRIBUTION WIDTH 19.4 % (9.0-15.0); WHITE BLOOD COUNT (AUTO) 10.8 K/uL (4.8-10.8)
[2022-12-23 05:30] LABS: ALBUMIN 2.4 g/dL (3.4-4.8); CALCIUM 8.2 mg/dL (8.4-11.0); PHOSPHORUS 8.6 mg/dL (2.7-4.5); TOTAL BILIRUBIN 0.6 mg/dL (0.0-1.0); TOTAL PROTEIN, SERUM 5.5 g/dL (6.4-8.3)
[2022-12-23 05:46] LABS: CREATININE 9.37 mg/dL (0.55-1.30)
[2022-12-23] MEDS: NORMAL SALINE 5 ML DISP.SYRIN IVF SCH ×3 (06:32→21:41)
[2022-12-23] MEDS: FLUoxetine HCL 10 MG CAPSULE (PROzac) PO SCH (08:40)
[2022-12-23] MEDS: DOCUSATE SODIUM 100 MG CAPSULE PO SCH ×2 (08:40→20:30)
[2022-12-23] MEDS: amLODIPine BESYLATE 10 MG TABLET PO SCH (08:41)
[2022-12-23] MEDS: GABAPENTIN 300 MG CAPSULE PO SCH ×3 (08:41→20:30)
[2022-12-23] MEDS: ATORVASTATIN 20 MG TABLET PO SCH (08:42)
[2022-12-23] MEDS: FUROSEMIDE 20 MG TABLET PO SCH (08:44)
[2022-12-23] MEDS: METOPROLOL SUCCINATE 25 MG TAB.SR.24H (TOPROL XL) PO SCH (09:00)
[2022-12-23] MEDS ORDERED: ROCURONIUM BROMIDE 10 MG/ML (ZEMURON) IV ONE (09:47)
[2022-12-23] MEDS ORDERED: ETOMIDATE 20 MG/ 10 ML VIAL (AMIDATE) IVP ONE (09:47)
[2022-12-23] MEDS: NACL 0.9% 1,000 ML IV SCH (11:42)
[2022-12-23] MEDS ORDERED: HEPARIN SODIUM,PORCINE 5,000 UNITS/ML VIAL MC ONE (12:30)
[2022-12-23] MEDS: HEPARIN 25,000 UNITS/D5W 250ML 250 ML IV PRN (14:12)
[2022-12-23 17:39] LABS: BLOOD GAS PH 7.426 (7.350-7.450)
[2022-12-23 17:40] LABS: BLOOD GAS BASE EXCESS -3.7 mmol/L (-3.0-3.0); BLOOD GAS HCO3 19.4 mmol/L (21.0-27.0); BLOOD GAS PCO2 30.2 mmHg (35.0-45.0); BLOOD GAS PO2 75.9 mmHg (75.0-100.0)
[2022-12-23 17:41] LABS: ABG O2 SAT% ESTIMATE 95.7 % (94.0-100.0); ALLEN'S TEST POSITIVE (P)
[2022-12-24] VITALS (36 sets, daily range): BP systolic 85–181; PULSE 68–97; RESP 18–19; TEMP 97.1–97.8; O2SAT 93–100
[2022-12-24] MEDS: MIDAZOLAM IN NACL,ISO-OSMOT/PF 100 ML IV PRN (05:40)
[2022-12-24] MEDS: FENTANYL CITRATE-0.9 % NACL/PF 100 ML IV PRN (05:44)
[2022-12-24] MEDS: NORMAL SALINE 5 ML DISP.SYRIN IVF SCH ×3 (06:00→21:37)
[2022-12-24 06:37] LABS: BASOPHILS # (AUTO) 0.1 K/uL (0.0-0.2); BASOPHILS % (AUTO) 1.1 % (0.0-2.0); EOSINOPHILS # (AUTO) 0.1 K/uL (0.0-0.4); EOSINOPHILS % (AUTO) 1.8 % (0.0-4.0); HEMATOCRIT 25.6 % (36-48); HEMOGLOBIN 8.1 g/dL (12.0-16.0); LYMPHOCYTES # (AUTO) 1.3 K/uL (1.0-5.5); LYMPHOCYTES % (AUTO) 16.5 % (20.5-51.5); MEAN CORPUSCULAR HEMOGLOBIN 28 pg (27-31); MEAN CORPUSCULAR HGB CONC 32 % (32-36); MEAN CORPUSCULAR VOLUME 88 fL (79.0-98.0); MONOCYTES # (AUTO) 0.8 K/uL (0.0-1.0); MONOCYTES % (AUTO) 9.8 % (1.7-9.3); NEUTROPHILS # (AUTO) 5.7 K/uL (1.8-7.7); NEUTROPHILS % (AUTO) 70.8 % (40.0-70.0); PLATELET COUNT (AUTO) 258 K/uL (130-430); RED CELL DISTRIBUTION WIDTH 19.4 % (9.0-15.0); WHITE BLOOD COUNT (AUTO) 8.1 K/uL (4.8-10.8)
[2022-12-24 07:04] LABS: CALCIUM 8.6 mg/dL (8.4-11.0); CREATININE 6.81 mg/dL (0.55-1.30); PHOSPHORUS 7.1 mg/dL (2.7-4.5); POTASSIUM 4.2 mmol/L (3.5-5.1)
[2022-12-24] MEDS: DOCUSATE SODIUM 100 MG CAPSULE PO SCH ×2 (08:54→21:34)
[2022-12-24] MEDS: GABAPENTIN 300 MG CAPSULE PO SCH ×3 (08:55→21:34)
[2022-12-24] MEDS: FLUoxetine HCL 10 MG CAPSULE (PROzac) PO SCH (08:55)
[2022-12-24] MEDS: ATORVASTATIN 20 MG TABLET PO SCH (08:55)
[2022-12-24] MEDS: FUROSEMIDE 20 MG TABLET PO SCH (08:56)
[2022-12-24] MEDS: amLODIPine BESYLATE 10 MG TABLET PO SCH (08:57)
[2022-12-24] MEDS: METOPROLOL SUCCINATE 25 MG TAB.SR.24H (TOPROL XL) PO SCH (08:58)
[2022-12-24] MEDS: HEPARIN 25,000 UNITS/D5W 250ML 250 ML IV PRN (09:00)
[2022-12-24] MEDS: NACL 0.9% 1,000 ML IV SCH (12:18)
[2022-12-24] MEDS: cefTRIAXone 1 GM in D5W 50 ML IV SCH (12:18)
[2022-12-24] MEDS: EPOETIN ALFA 20,000 UNITS/ML VIAL SUBCUT SCH (17:21)
[2022-12-24] MEDS ORDERED: ALBUMIN HUMAN 25% 100 ML IV ONE (19:00)
[2022-12-25] VITALS (33 sets, daily range): BP systolic 88–199; PULSE 60–96; RESP 18–21; TEMP 96.3–97.1; O2SAT 95–100
[2022-12-25] MEDS: HEPARIN 25,000 UNITS/D5W 250ML 250 ML IV PRN ×2 (00:48→18:19)
[2022-12-25 05:15] LABS: ERYTHROCYTE SEDIMENTATION RATE 9 MM/HR (0-20)
[2022-12-25 05:24] LABS: BASOPHILS % (AUTO) 0.5 % (0.0-2.0); EOSINOPHILS # (AUTO) 0.1 K/uL (0.0-0.4); EOSINOPHILS % (AUTO) 1.3 % (0.0-4.0); HEMATOCRIT 22.7 % (36-48); HEMOGLOBIN 7.2 g/dL (12.0-16.0); LYMPHOCYTES # (AUTO) 1.1 K/uL (1.0-5.5); LYMPHOCYTES % (AUTO) 15.8 % (20.5-51.5); MEAN CORPUSCULAR HEMOGLOBIN 28 pg (27-31); MEAN CORPUSCULAR HGB CONC 32 % (32-36); MEAN CORPUSCULAR VOLUME 89 fL (79.0-98.0); MONOCYTES # (AUTO) 0.7 K/uL (0.0-1.0); MONOCYTES % (AUTO) 9.9 % (1.7-9.3); NEUTROPHILS % (AUTO) 72.5 % (40.0-70.0); PLATELET COUNT (AUTO) 179 K/uL (130-430); RED BLOOD CELL COUNT(AUTO) 2.56 MIL/uL (4.2-6.2); RED CELL DISTRIBUTION WIDTH 19.8 % (9.0-15.0); WHITE BLOOD COUNT (AUTO) 6.9 K/uL (4.8-10.8)
[2022-12-25 05:39] LABS: ALBUMIN 2.1 g/dL (3.4-4.8); CALCIUM 8.7 mg/dL (8.4-11.0); CREATININE 5.84 mg/dL (0.55-1.30); PHOSPHORUS 5.6 mg/dL (2.7-4.5); POTASSIUM 3.9 mmol/L (3.5-5.1); TOTAL BILIRUBIN 0.6 mg/dL (0.0-1.0); TOTAL PROTEIN, SERUM 5.2 g/dL (6.4-8.3)
[2022-12-25] MEDS: NORMAL SALINE 5 ML DISP.SYRIN IVF SCH ×3 (05:56→20:41)
[2022-12-25] MEDS: FENTANYL CITRATE-0.9 % NACL/PF 100 ML IV PRN (06:05)
[2022-12-25] MEDS: amLODIPine BESYLATE 10 MG TABLET PO SCH (09:00)
[2022-12-25] MEDS: FUROSEMIDE 20 MG TABLET PO SCH (09:00)
[2022-12-25] MEDS: METOPROLOL SUCCINATE 25 MG TAB.SR.24H (TOPROL XL) PO SCH (09:00)
[2022-12-25] MEDS: DOCUSATE SODIUM 100 MG CAPSULE PO SCH ×2 (10:19→21:30)
[2022-12-25] MEDS: FLUoxetine HCL 10 MG CAPSULE (PROzac) PO SCH (10:19)
[2022-12-25] MEDS: GABAPENTIN 300 MG CAPSULE PO SCH ×3 (10:19→21:30)
[2022-12-25] MEDS: ATORVASTATIN 20 MG TABLET PO SCH (10:19)
[2022-12-25] MEDS: NACL 0.9% 1,000 ML IV SCH (10:45)
[2022-12-25] MEDS ORDERED: HEPARIN SODIUM,PORCINE 5,000 UNITS/ML VIAL MC ONE (13:00)
[2022-12-25] MEDS: cefTRIAXone 1 GM in D5W 50 ML IV SCH (13:11)
[2022-12-26] VITALS (21 sets, daily range): BP systolic 73–167; PULSE 64–93; RESP 17–18; TEMP 96.5–97.9; O2SAT 93–97
[2022-12-26] MEDS: FENTANYL CITRATE-0.9 % NACL/PF 100 ML IV PRN (05:08)
[2022-12-26 05:25] LABS: BASOPHILS % (AUTO) 0.4 % (0.0-2.0); EOSINOPHILS # (AUTO) 0.3 K/uL (0.0-0.4); EOSINOPHILS % (AUTO) 4.2 % (0.0-4.0); HEMATOCRIT 24.9 % (36-48); HEMOGLOBIN 7.5 g/dL (12.0-16.0); LYMPHOCYTES # (AUTO) 1.2 K/uL (1.0-5.5); LYMPHOCYTES % (AUTO) 16.7 % (20.5-51.5); MEAN CORPUSCULAR HEMOGLOBIN 27 pg (27-31); MEAN CORPUSCULAR HGB CONC 30 % (32-36); MEAN CORPUSCULAR VOLUME 90 fL (79.0-98.0); MONOCYTES # (AUTO) 0.8 K/uL (0.0-1.0); MONOCYTES % (AUTO) 10.3 % (1.7-9.3); NEUTROPHILS % (AUTO) 68.4 % (40.0-70.0); PLATELET COUNT (AUTO) 151 K/uL (130-430); RED BLOOD CELL COUNT(AUTO) 2.77 MIL/uL (4.2-6.2); RED CELL DISTRIBUTION WIDTH 19.4 % (9.0-15.0); WHITE BLOOD COUNT (AUTO) 7.4 K/uL (4.8-10.8)
[2022-12-26 05:36] LABS: CALCIUM 8.5 mg/dL (8.4-11.0); CREATININE 5.42 mg/dL (0.55-1.30); POTASSIUM 4.1 mmol/L (3.5-5.1)
[2022-12-26 05:56] LABS: TOTAL BILIRUBIN 0.4 mg/dL (0.0-1.0); TOTAL PROTEIN, SERUM 5.4 g/dL (6.4-8.3)
[2022-12-26] MEDS: NORMAL SALINE 5 ML DISP.SYRIN IVF SCH (06:00)
[2022-12-26] MEDS ORDERED: ALBUMIN HUMAN 25% 50 ML IV ONE (08:15)
[2022-12-26] MEDS: ATORVASTATIN 20 MG TABLET PO SCH (08:45)
[2022-12-26] MEDS: FUROSEMIDE 20 MG TABLET PO SCH (08:45)
[2022-12-26] MEDS: GABAPENTIN 300 MG CAPSULE PO SCH (08:46)
[2022-12-26] MEDS: FLUoxetine HCL 10 MG CAPSULE (PROzac) PO SCH (08:46)
[2022-12-26] MEDS: amLODIPine BESYLATE 10 MG TABLET PO SCH (08:46)
[2022-12-26] MEDS: DOCUSATE SODIUM 100 MG CAPSULE PO SCH (08:46)
[2022-12-26] MEDS: METOPROLOL SUCCINATE 25 MG TAB.SR.24H (TOPROL XL) PO SCH (08:47)
[2022-12-26] MEDS ORDERED: MORPHINE SULFATE IN 0.9 % NACL 100 ML IV PRN (11:00)
[2022-12-26] MEDS ORDERED: NALOXONE HCL 0.4 MG/ML AMP (NARCAN) IVP PRN (11:00)
[2022-12-27] MEDS ORDERED: LEVOFLOXACIN 250 MG/D5W 50 ML IV SCH (21:00)
== END 2022-12-26 15:10 | DRG 720 ==
LOC: SED 00:23 → SMU 03:51 → STU 23:53 → SIC 12-22 01:49
PROVIDERS: ADMIT Preventive Medicine Preventive Medicine/Occupational Environmental Medicine; ATTEND Preventive Medicine Preventive Medicine/Occupational Environmental Medicine
PROC: 05JY3ZZ Inspection of Upper Vein, Percutaneous Approach (ICD-10-PCS; 2022-12-21)
PROC: 5A1955Z Respiratory Ventilation, Greater than 96 Consecutive Hours (ICD-10-PCS; principal; 2022-12-22)
PROC: 5A12012 Performance of Cardiac Output, Single, Manual (ICD-10-PCS; 2022-12-22)
PROC: 0BH17EZ Insertion of Endotracheal Airway into Trachea, Via Natural or Artificial Opening (ICD-10-PCS; 2022-12-22)
PROC: 05JY3ZZ Inspection of Upper Vein, Percutaneous Approach (ICD-10-PCS; 2022-12-23)
PROC: 06HY33Z Insertion of Infusion Device into Lower Vein, Percutaneous Approach (ICD-10-PCS; 2022-12-23)
PROC: 5A1D70Z Performance of Urinary Filtration, Intermittent, Less than 6 Hours Per Day (ICD-10-PCS; 2022-12-23)
PROC: 5A1D70Z Performance of Urinary Filtration, Intermittent, Less than 6 Hours Per Day (ICD-10-PCS; 2022-12-24)
PROC: 5A1D70Z Performance of Urinary Filtration, Intermittent, Less than 6 Hours Per Day (ICD-10-PCS; 2022-12-25)
DX: A41.9 Sepsis, unspecified organism (principal); J96.01 Acute respiratory failure with hypoxia; I21.4 Non-ST elevation (NSTEMI) myocardial infarction; E43 Unspecified severe protein-calorie malnutrition; J44.0 Chronic obstructive pulmonary disease with (acute) lower respiratory infection; I13.2 Hypertensive heart and chronic kidney disease with heart failure and with stage 5 chronic kidney disease, or end stage renal disease; N17.9 Acute kidney failure, unspecified; E83.39 Other disorders of phosphorus metabolism; D63.1 Anemia in chronic kidney disease; J15.69 Pneumonia due to other Gram-negative bacteria; N18.6 End stage renal disease; E87.1 Hypo-osmolality and hyponatremia; E83.41 Hypermagnesemia; E11.22 Type 2 diabetes mellitus with diabetic chronic kidney disease; Z99.11 Dependence on respirator [ventilator] status; M79.605 Pain in left leg; E83.51 Hypocalcemia; F17.210 Nicotine dependence, cigarettes, uncomplicated; I46.9 Cardiac arrest, cause unspecified; I50.9 Heart failure, unspecified; R53.1 Weakness; E87.5 Hyperkalemia; E66.2 Morbid (severe) obesity with alveolar hypoventilation; C55 Malignant neoplasm of uterus, part unspecified; E11.65 Type 2 diabetes mellitus with hyperglycemia; Z16.12 Extended spectrum beta lactamase (ESBL) resistance; B96.20 Unspecified Escherichia coli [E. coli] as the cause of diseases classified elsewhere; E11.40 Type 2 diabetes mellitus with diabetic neuropathy, unspecified; I25.10 Atherosclerotic heart disease of native coronary artery without angina pectoris; Z90.710 Acquired absence of both cervix and uterus; Z90.49 Acquired absence of other specified parts of digestive tract; Z89.511 Acquired absence of right leg below knee; Z99.2 Dependence on renal dialysis; Z68.41 Body mass index [BMI] 40.0-44.9, adult; Z79.899 Other long term (current) drug therapy; I25.2 Old myocardial infarction; Z91.199 Patient's noncompliance with other medical treatment and regimen due to unspecified reason; Z91.158 Patient's noncompliance with renal dialysis for other reason; Z51.5 Encounter for palliative care
CPT/HCPCS: 36415; 36600; 71045; 74018; 76000; 80048; 80053; 82800-TC; 82803; 82962; 83735; 83880; 84100; 84484; 85025; 85610-TC; 85651-TC; 85730-TC; 86886; 86900; 86901; 87040; 87070-TC; 87081; 87205-TC; 90935; 90937; 92950; 93005; 93306; 93970; 93971; 94002; 94003; 94640; 96372; 96374; 96376; 97116-GP; 97530-GP; 99285; G0378; J0610; J0696; J0885; J1170; J1200; J1644; J1956; J2270; J2405; J2704; J3010; J3465; J3490; J7050; J7060; P9046